=== PATIENT | female | born 1980 | race Caucasian/White ===

== ENCOUNTER 2017-03-28 18:57 | Emergency (ER) | payer MEDICARE, MEDICAID ==
[2016-03-09 17:33] VITALS: Ht 168.9 cm; Wt 61.2 kg
[~2017-03-28] VITALS: Ht 168.9 cm; Wt 61.2 kg
[~2017-03-28 18:57] MED LIST: ALPR-434 PO; BACL-1 PO; CYCL10TA29 PO; DOXY-260 PO; HYDR-4309 PO; HYDR25CA83 PO; HYDR50CA48 PO; IBUP-2708 PO; LOR5/325 PO; LORA-1456 PO; MELA3TAB31 PO; METR-160 PO; MIRT-1 PO; MULT-1379 PO; OLAN5TAB25 PO; ONDA4TAB PO; ONDA8TAB94 PO; PRED15SO5 OU; PRED1DRO2 OP; PRED20TA6 PO; SULF-198 PO; TRAM-420 PO
--- NOTE | 2017-03-28 19:01 | ER Report ---
History and Physical Time Seen By MD: 19:00 Hx. of Stated Complaint: coccyx pain HPI/ROS 37-year-old female was ice skating yesterday said she fell backwards onto her coccyx has had pain since then states she was able to have a bowel movement this morning Remainder of the 14 system rev: Yes Allergies: Coded Allergies: lamotrigine (Verified Allergy, Severe, 03/28/17) Reports having seizures. Opioids - Morphine Analogues (Verified Allergy, Intermediate, 03/28/17) albuterol sulfate (Verified Allergy, Unknown, STOPPED BREATHING, 03/28/17) oxycodone HCl (Verified Adverse Reaction, Unknown, VOMITTING, 03/28/17) Home Meds Active Scripts Ciprofloxacin Hcl (CIPROFLOXACIN HCL) 500 Mg Tablet, 500 MG PO Q12H, #14 TAB Prov:KENNETH WANG 03/28/17 Tramadol Hcl (ULTRAM) 50 Mg Tablet, 50 MG PO Q6H for 7 Days, #20 TAB Prov:KENNETH WANG 03/28/17 Docusate Sodium (COLACE) 100 Mg Capsule, 100 MG PO nightly for 30 Days, #30 CAPSULE Prov:KENNETH WANG APRN-Nicolette 03/28/17 Reported Medications Mirtazapine (REMERON) 15 Mg Tablet, 7.5 MG PO QHS, #30 1 Refill TAKE 1/2 TABLET AN HOUR BEFORE YOU PLAN TO GO TO SLEEP. 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 OCC MARIJUANA) Hx Alcohol Use: Yes Family History of: Other (psyche) Constitutional Vital Sign - Last 24 Hours 03/28/17 19:12 Temp 98.5 Pulse 87 Resp 16 B/P (MAP) 105/69 Pulse Ox 96 Physical Exam 37-year-old female alert and oriented mild distress HEENT head normocephalic/ atraumatic tympanic membranes are non-reddened throat is non-reddened neck is supple no JVD heart rate regular no murmurs or gallops lungs clear to auscultation abdomen is soft moves all extremities does have point tenderness pain to her lower coccyx Medical Decision Making Data Points Laboratory Hematology Test 03/28/17 00:00 Urine Color Sravani Urine Clarity Slightly-cloudy Urine pH 5.0 pH (4.8-9.5) Urine Specific [place] 1.026 Urine Protein Negative mg/dL (NEGATIVE) Urine Glucose (UA) Negative mg/dL (NEGATIVE) Urine Ketones 20 mg/dL (NEGATIVE) Urine Blood Negative (NEGATIVE) Urine Nitrite Negative (NEGATIVE) Urine Bilirubin Negative (NEGATIVE) Urine Urobilinogen 2.0 mg/dL (0.2-1.9) Urine Leukocyte Esterase Moderate (NEGATIVE) Urine RBC 9 /HPF (0-2/HPF) Urine WBC 144 /HPF (0-5/HPF) Urine Squamous Epithelial Cells Many /LPF (</=FEW) Urine Renal Epithelial Cells Few /LPF (NONE-FEW) Urine Bacteria Few /HPF (NONE-FEW) Urine Hyaline Casts Few /LPF (NONE-FEW) Urine Mucus Few /HPF (NONE-FEW) Urine HCG, Qualitative Negative (NEGATIVE) Chemistry Test 03/28/17 00:00 Urine Color Sravani Urine Clarity Slightly-cloudy Urine pH 5.0 pH (4.8-9.5) Urine Specific [place] 1.026 Urine Protein Negative mg/dL (NEGATIVE) Urine Glucose (UA) Negative mg/dL (NEGATIVE) Urine Ketones 20 mg/dL (NEGATIVE) Urine Blood Negative (NEGATIVE) Urine Nitrite Negative (NEGATIVE) Urine Bilirubin Negative (NEGATIVE) Urine Urobilinogen 2.0 mg/dL (0.2-1.9) Urine Leukocyte Esterase Moderate (NEGATIVE) Urine RBC 9 /HPF (0-2/HPF) Urine WBC 144 /HPF (0-5/HPF) Urine Squamous Epithelial Cells Many /LPF (</=FEW) Urine Renal Epithelial Cells Few /LPF (NONE-FEW) Urine Bacteria Few /HPF (NONE-FEW) Urine Hyaline Casts Few /LPF (NONE-FEW) Urine Mucus Few /HPF (NONE-FEW) Urine HCG, Qualitative Negative (NEGATIVE) Urinalysis Test 03/28/17 00:00 Urine Color Sravani Urine Clarity Slightly-cloudy Urine pH 5.0 pH (4.8-9.5) Urine Specific [place] 1.026 Urine Protein Negative mg/dL (NEGATIVE) Urine Glucose (UA) Negative mg/dL (NEGATIVE) Urine Ketones 20 mg/dL (NEGATIVE) Urine Blood Negative (NEGATIVE) Urine Nitrite Negative (NEGATIVE) Urine Bilirubin Negative (NEGATIVE) Urine Urobilinogen 2.0 mg/dL (0.2-1.9) Urine Leukocyte Esterase Moderate (NEGATIVE) Urine RBC 9 /HPF (0-2/HPF) Urine WBC 144 /HPF (0-5/HPF) Urine Squamous Epithelial Cells Many /LPF (</=FEW) Urine Renal Epithelial Cells Few /LPF (NONE-FEW) Urine Bacteria Few /HPF (NONE-FEW) Urine Hyaline Casts Few /LPF (NONE-FEW) Urine Mucus Few /HPF (NONE-FEW) Urine HCG, Qualitative Negative (NEGATIVE) EKG/Imaging Imaging FACILITY: [facility] - [place] PATIENT NAME: Ignacio Andrade : 1980 MR: [id number] V: [id number] EXAM DATE: ORDERING PHYSICIAN: KENNETH WANG TECHNOLOGIST: Location: [facility] [place] Patient: Ignacio Andrade : 1980 Visit/Account:[id number] Date of Sevice: 03/28/2017 Three-view sacrum and coccyx Indication: Fall Comparison: X-ray examination abdominal series May 2015 Findings: SI joints are symmetric. Hips unremarkable. Pubic rami are intact. No evidence of sacral or coccygeal fracture is noted. Lower lumbar vertebra are intact. IMPRESSION: 1. No acute osseous abnormality of the sacrum or coccyx as above. Report Dictated By: Cheng Abraham MD at 03/28/2017 8:23 PM Report E-Signed By: Cheng Abraham MD at 03/28/2017 8:25 PM WSN:[id number] ED Course/Re-evaluation ED Course has a uti will give cipro, stool softner, ultram as needed for pain ( 20 nr) Re-evaluation pain resolved after treatment Decision to Disposition Date: Mar 28, 2017 Decision to Disposition Time: 19:26 Depart Departure Latest Vital Signs Vital Signs Date Time Temp Pulse Resp B/P (MAP) Pulse Ox O2 Delivery O2 Flow Rate FiO2 03/28/17 19:12 98.5 87 16 105/69 96 Impression: Primary Impression: Fall from ice-skates Additional Impressions: UTI (urinary tract infection) Bruise Condition: Improved Disposition: HOME OR SELF-CARE New Scripts Ciprofloxacin Hcl (CIPROFLOXACIN HCL) 500 Mg Tablet 500 MG PO Q12H, #14 TAB Prov: KENNETH WANG 03/28/17 Tramadol Hcl (ULTRAM) 50 Mg Tablet 50 MG PO Q6H for 7 Days, #20 TAB Prov: KENNETH WANG 03/28/17 Docusate Sodium (COLACE) 100 Mg Capsule 100 MG PO nightly for 30 Days, #30 CAPSULE Prov: KENNETH WANG 03/28/17 Patient Instructions: Contusion in Adults (DC), Fall Prevention (ED), Urinary Tract Infection in Women (ED) Additional Instructions: see your doctor in one week to recheck urine, push fluids, Problem Qualifiers KENNETH WANG Mar 28, 2017 19:00
[2017-03-28 19:12] VITALS: BP 105/69
[2017-03-28] MEDS ORDERED: traMADol 50 MG TAB PO ONE (19:25)
[2017-03-28] MEDS ORDERED: DOCU-416 PO (19:29)
[2017-03-28] MEDS ORDERED: TRAM-627 PO (19:29)
[2017-03-28] MEDS ORDERED: CIPR-214 PO (19:52)
[2017-03-28] MEDS ORDERED: CIPROFLOXACIN 500 MG TAB PO ONE (20:05)
--- NOTE | 2017-03-28 20:28 | RADIOLOGY IMAGING REPORT ---
FACILITY: [facility] - [place] PATIENT NAME: Ignacio Andrade : 1980 MR: [id number] V: [id number] EXAM DATE: ORDERING PHYSICIAN: KENNETH WANG TECHNOLOGIST: Location: [facility] - [place] Patient: Ignacio Andrade : 1980 Visit/Account:[id number] Date of Sevice: 03/28/2017 Three-view sacrum and coccyx Indication: Fall Comparison: X-ray examination abdominal series May 2015 Findings: SI joints are symmetric. Hips unremarkable. Pubic rami are intact. No evidence of sacral or coccygeal fracture is noted. Lower lumbar vertebra are intact. IMPRESSION: 1. No acute osseous abnormality of the sacrum or coccyx as above. Report Dictated By: Cheng Abraham MD at 03/28/2017 8:23 PM Report E-Signed By: Cheng Abraham MD at 03/28/2017 8:25 PM WSN:[id number]
== END 2017-03-28 20:50 | disposition home or self-care (01) ==
LOC: ER 19:39
DX: N39.0 Urinary tract infection, site not specified (principal); W00.0XXA Fall on same level due to ice and snow, initial encounter; Y93.21 Activity, ice skating
CPT/HCPCS: 72220; 81001; 81025; 87077; 87088; 87186; 99283; A9270

== ENCOUNTER 2017-04-18 16:09 | Emergency (ER) | payer MEDICARE, MEDICAID ==
[2016-03-09 17:33] VITALS: Wt 59.0 kg
[~2017-04-18 16:09] MED LIST changes: +CIPR-214 PO; +DOCU-416 PO; +TRAM-627 PO
[2017-04-18] MEDS ORDERED: PROPARACAINE 0.5% OP 15ML BTL OS ONE (16:45)
[2017-04-18] MEDS ORDERED: FLUORESCEIN SOD 1 MG 1 EA STRP OS ONE (16:45)
[2017-04-18] MEDS ORDERED: SUMA5SPR7 NS (17:58)
--- NOTE | 2017-04-18 17:58 | ER Report ---
History and Physical Time Seen By MD: 16:47 Hx. of Stated Complaint: patient states she has a contact stuck in her eye and that there is some terrible swelling as well; patient also has a cluster head ache HPI/ROS CHIEF COMPLAINT: Headache HISTORY OF PRESENT ILLNESS: Left-sided headache associated with left eye redness and tearing headache is throbbing pain in the globe. She's had similar headaches before. No nausea or vomiting. Has had Advil at home no relief. Denies any foreign body exposure to her eye. Denies recent drilling hammering or working with metal or wood. Denies chemical or other splash to her eye. Does not feel like conjunctivitis. Denies eye discharge. Denies visual loss. She has been wearing her contact for about a week and usually changes them out once a month. Contact is in place at this time. REVIEW OF SYSTEMS: Constitutional: No fever, no chills. Eyes: No discharge. ENT: No sore throat. Cardiovascular: No chest pain, no palpitations. Respiratory: No cough, no shortness of breath. Gastrointestinal: No abdominal pain, no vomiting. Genitourinary: No hematuria. Musculoskeletal: No back pain. Skin: No rashes. Neurological: No headache. Allergies: Coded Allergies: lamotrigine (Verified Allergy, Severe, 04/18/17) Reports having seizures. Opioids - Morphine Analogues (Verified Allergy, Intermediate, 04/18/17) albuterol sulfate (Verified Allergy, Unknown, STOPPED BREATHING, 04/18/17) oxycodone HCl (Verified Adverse Reaction, Unknown, VOMITTING, 04/18/17) Home Meds Reported Medications Mirtazapine (REMERON) 15 Mg Tablet, 7.5 MG PO QHS, #30 1 Refill TAKE 1/2 TABLET AN HOUR BEFORE YOU PLAN TO GO TO SLEEP. 06/25/15 Olanzapine (ZYPREXA) 5 Mg Tablet, 5 MG PO QHS, #30 1 Refill 06/25/15 Hydroxyzine Pamoate (VISTARIL) 25 Mg Capsule, 25 MG PO Q6H Y for ANXIETY/ INSOMNIA, #60 CAPSULE 1 Refill TAKE EVERY SIX HOURS NEEDED FOR ANXIETY OR INSOMNIA 06/13/14 Discontinued Scripts Ciprofloxacin Hcl (CIPROFLOXACIN HCL) 500 Mg Tablet, 500 MG PO Q12H, #14 TAB Prov:KENNETH WANG 03/28/17 Tramadol Hcl (ULTRAM) 50 Mg Tablet, 50 MG PO Q6H for 7 Days, #20 TAB Prov:KENNETH WANG SARA 03/28/17 Docusate Sodium (COLACE) 100 Mg Capsule, 100 MG PO nightly for 30 Days, #30 CAPSULE Prov:KENNETH WANG DAMEONPorscheNicolette 03/28/17 Hx Smoking: Yes Smoking Status: Former Smoker Exposure to Second Hand Smoke?: No 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 OCC MARIJUANA) Hx Alcohol Use: Yes Constitutional Vital Sign - Last 24 Hours 04/18/17 16:47 Temp 98.2 Pulse 69 Resp 18 B/P (MAP) 109/83 Pulse Ox 96 O2 Delivery Room Air Physical Exam General Appearance: The patient is alert, has no immediate need for airway protection and no signs of toxicity. Mild to moderate distress Eyes: Pupils equal and round no pallor or injection. Fluorescein stain after proparacaine and slit lamp exam was performed. Negative Esperanza sign. Negative for stippling. Negative for dendrites. Negative for dye uptake to suggest corneal abrasion perforation or ulcer. Augusto-Pen exam was performed and pressures were 19 and 22 in the affected left eye. The right eye was not tested. ENT, Mouth: Mucous membranes are moist. Respiratory: There are no retractions, lungs are clear to auscultation. Cardiovascular: Regular rate and rhythm. No murmurs gallops or rubs Gastrointestinal: Abdomen is soft and non tender, no masses, bowel sounds normal. Neurological: Normal neurological exam Skin: Warm and dry, no rashes. Musculoskeletal: Neck is supple non tender. Extremities are nontender, nonswollen and have full range of motion. No edema DIFFERENTIAL DIAGNOSIS: After history and physical exam differential diagnosis was considered for migraine headache, cluster headache, eye foreign body, corneal abrasion or other entity, glaucoma Medical Decision Making ED Course/Re-evaluation ED Course Headache improved in the ED after high flow oxygen by nonrebreather at 15 L/m. Slit-lamp exam was negative Augusto-Pen exam was negative patient plans Opto follow -up tomorrow morning has Advil at home for the pain will provide triptan should the headache recur. Decision to Disposition Date: Apr 18, 2017 Decision to Disposition Time: 17:55 Depart Departure Latest Vital Signs Vital Signs Date Time Temp Pulse Resp B/P (MAP) Pulse Ox O2 Delivery O2 Flow Rate FiO2 04/18/17 16:47 98.2 69 18 109/83 96 Room Air Impression: Primary Impression: Cluster headache Condition: Improved Disposition: HOME OR SELF-CARE New Scripts Sumatriptan (SUMATRIPTAN) 5 Mg [place] 5 MG NS ONCE Y for headache for 7 Days, #1 BOT Prov: BEV FULLER MD 04/18/17 Patient Instructions: Cluster Headache (ED) Problem Qualifiers Primary Impression: Cluster headache Headache chronicity pattern: unspecified pattern Intractability: not intractable Qualified Codes: G44.009 - Cluster headache syndrome, unspecified , not intractable BEV FULLER MD Apr 18, 2017 17:58
[2017-04-18 18:00] VITALS: BP 102/79
[2017-04-19] MEDS ORDERED: VALA500T66 PO (17:19)
[2017-04-19] MEDS ORDERED: LOR5/325 PO (19:33)
[2017-04-19] MEDS ORDERED: ONDA4TAB PO (19:33)
[2017-04-19] MEDS ORDERED: KET10 PO (19:33)
== END 2017-04-18 18:05 | disposition home or self-care (01) ==
LOC: ER 16:41
DX: G44.009 Cluster headache syndrome, unspecified, not intractable (principal)
CPT/HCPCS: 99283; A9270

== ENCOUNTER 2017-04-19 16:57 | Emergency (ER) | payer MEDICARE, MEDICAID ==
[2016-03-09 17:33] VITALS: Wt 61.2 kg
[~2017-04-19 16:57] MED LIST changes: +SUMA5SPR7 NS
[2017-04-19] MEDS ORDERED: VALA500T66 PO (17:19)
--- NOTE | 2017-04-19 17:30 | ER Report ---
History and Physical Time Seen By MD: 17:29 Hx. of Stated Complaint: PATIENT WENT TO EYE DR. TODAY AND TOLD HER SHE HAD SHINGLES; THE SHINGLES ARE IN HER NOSE AND ON HER RIGHT SIDE OF HER FACE; PATIENT HAS N/V AND STATES SHE HAS 10/10 PAIN HPI/ROS CHIEF COMPLAINT: headache and pain in face HISTORY OF PRESENT ILLNESS: This is a 37 year old female. She is having pain, headache and face pain, from shingles. Went to the eye doctor today and was diagnosed with shingles, started on acyclovir and steroids. Having severe headache and face/nose pain. Has follow-up with network operations specialist for eye involvement. Having nausea and vomiting as well. Allergies: Coded Allergies: lamotrigine (Verified Allergy, Severe, 04/19/17) Reports having seizures. Opioids - Morphine Analogues (Verified Allergy, Intermediate, 04/19/17) albuterol sulfate (Verified Allergy, Unknown, STOPPED BREATHING, 04/19/17) oxycodone HCl (Verified Adverse Reaction, Unknown, VOMITTING, 04/19/17) Home Meds Active Scripts Ondansetron (ZOFRAN ODT) 4 Mg Tab.rapdis, 4 MG PO Q6H Y for NAUSEA/VOMITING, # 20 TAB.SHADY 0 Refills Prov:PADMINI YEAGER MD 04/19/17 Ketorolac Tromethamine (KETOROLAC TROMETHAMINE) 10 Mg Tab, 10 MG PO Q6H Y for PAIN, #12 TAB 0 Refills Prov:PADMINI YEAGER MD 04/19/17 Hydrocodone Bit/Acetaminophen (HYDROCODON-ACETAMINOPHEN 5-325) 1 Each Tablet, 1 EACH PO Q4H Y for PAIN, #15 TAB 0 Refills Prov:PADMINI YEAGER MD 04/19/17 Sumatriptan (SUMATRIPTAN) 5 Mg [place], 5 MG NS ONCE Y for headache for 7 Days, # 1 BOT Prov:BEV FULLER MD 04/18/17 Reported Medications Valacyclovir Hcl (VALTREX) 500 Mg Tablet, 500 MG PO 04/19/17 Mirtazapine (REMERON) 15 Mg Tablet, 7.5 MG PO QHS, #30 1 Refill TAKE 1/2 TABLET AN HOUR BEFORE YOU PLAN TO GO TO SLEEP. 06/25/15 Olanzapine (ZYPREXA) 5 Mg Tablet, 5 MG PO QHS, #30 1 Refill 06/25/15 Hydroxyzine Pamoate (VISTARIL) 25 Mg Capsule, 25 MG PO Q6H Y for ANXIETY/ INSOMNIA, #60 CAPSULE 1 Refill TAKE EVERY SIX HOURS NEEDED FOR ANXIETY OR INSOMNIA 06/13/14 Discontinued Scripts Ciprofloxacin Hcl (CIPROFLOXACIN HCL) 500 Mg Tablet, 500 MG PO Q12H, #14 TAB Prov:KENNETH WANG 03/28/17 Tramadol Hcl (ULTRAM) 50 Mg Tablet, 50 MG PO Q6H for 7 Days, #20 TAB Prov:KENNETH WANG 03/28/17 Docusate Sodium (COLACE) 100 Mg Capsule, 100 MG PO nightly for 30 Days, #30 CAPSULE Prov:KENNETH WANG 03/28/17 Reviewed Nurses Notes: Yes Hx Smoking: Yes Smoking Status: Former Smoker Exposure to Second Hand Smoke?: No 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 Eyes: Pupils equal and round, some injection. Photophobia. ENT: Moist mucous membranes. Inflammation of right nasal passage and vesicular rash on cheek. Respiratory: Breathing easily. Cardiac: regular rate and rhythm Skin: shingles rash as noted. DIFFERENTIAL DIAGNOSIS: After history and physical exam differential diagnosis was considered for shingles pain Medical Decision Making ED Course/Re-evaluation Clinical Indication for ER IV: Hydration, IV Access ED Course Toradol 30mg IV given with good results for pain. Also given Lortab 5/325. 2 liters of normal saline given. Zofran 4mg IV for pain, with initial good results , then given Phenergan 12.5mg IV for nausea later. Decision to Disposition Date: Apr 19, 2017 Decision to Disposition Time: 19:31 Depart Departure Latest Vital Signs Vital Signs Date Time Temp Pulse Resp B/P (MAP) Pulse Ox O2 Delivery O2 Flow Rate FiO2 04/19/17 18:27 76 95 04/19/17 17:59 100/55 (70) 04/19/17 17:08 97.0 19 Room Air Impression: Primary Impression: Shingles Additional Impressions: Face pain Headache Condition: Improved Disposition: HOME OR SELF-CARE New Scripts Ondansetron (ZOFRAN ODT) 4 Mg Tab.rapdis 4 MG PO Q6H Y for NAUSEA/VOMITING, #20 TAB.SHADY 0 Refills Prov: PADMINI YEAGER MD 04/19/17 Ketorolac Tromethamine (KETOROLAC TROMETHAMINE) 10 Mg Tab 10 MG PO Q6H Y for PAIN, #12 TAB 0 Refills Prov: PADMINI YEAGER MD 04/19/17 Hydrocodone Bit/Acetaminophen (HYDROCODON-ACETAMINOPHEN 5-325) 1 Each Tablet 1 EACH PO Q4H Y for PAIN, #15 TAB 0 Refills Prov: PADMINI YEAGER MD 04/19/17 Patient Instructions: Shingles (ED) Additional Instructions: Follow-up with the network operations specialist as planned. Keep taking the steroid and the antiviral as your eye doctor prescribed. Take Toradol 10mg one every 6 hours as needed for pain. Lortab 5/325, one every 4 hours as needed for pain. Zofran 4mg, one every 6 hours as needed for pain. Problem Qualifiers Primary Impression: Shingles Herpes zoster complications: with ocular involvement Herpes zoster ocular complication detail: other herpes zoster eye disease Qualified Codes: B02.39 - Other herpes zoster eye disease Additional Impressions: Headache Headache type: unspecified Headache chronicity pattern: acute headache Intractability: not intractable Qualified Codes: R51 - Headache PADMINI YEAGER MD Apr 19, 2017 17:29
[2017-04-19] MEDS ORDERED: NS(*) 0.9% 1000 ML BAG 1,000 ML IV ONE ×2 (17:40→18:50)
[2017-04-19] MEDS ORDERED: ONDANSETRON 4 MG/2 ML VIAL IVP ONE ×2 (17:40→20:00)
[2017-04-19] MEDS ORDERED: APAP/HYDROCODONE 325/5 TAB PO ONE (17:40)
[2017-04-19] MEDS ORDERED: KETOROLAC 30 MG/ML VIAL IVP ONE (17:40)
[2017-04-19] MEDS ORDERED: KET10 PO (19:33)
[2017-04-19] MEDS ORDERED: ONDA4TAB PO (19:33)
[2017-04-19] MEDS ORDERED: LOR5/325 PO (19:33)
[2017-04-19] MEDS ORDERED: ACET/HYDROC 5/325MG TH ER ONLY 2 TAB/BOTTLE PO ONE (19:40)
[2017-04-19] MEDS ORDERED: ONDANSETRON 4 MG ODT TH SL ONE (19:40)
[2017-04-19] MEDS ORDERED: KETOROLAC TROM 10 MG TAB TH PO ONE (19:40)
[2017-04-19 20:00] VITALS: BP 119/75
[2017-04-19] MEDS ORDERED: PROMETHAZINE 25 MG/ML 1 ML AMP IVP ONE (20:20)
== END 2017-04-19 20:32 | disposition home or self-care (01) ==
LOC: ER 17:13
DX: B02.39 Other herpes zoster eye disease (principal); R51 Headache
CPT/HCPCS: 96361; 96374; 96375; 96376; 99284; A9270; J1885; J2405; J2550; J7030; Q0162; S0119

== ENCOUNTER 2017-04-24 10:07 | Emergency (ER) | payer MEDICARE, MEDICAID ==
[2016-03-09 17:33] VITALS: Wt 61.2 kg
[~2017-04-24 10:07] MED LIST changes: +KET10 PO; +VALA500T66 PO
--- NOTE | 2017-04-24 10:15 | ER Report ---
History and Physical Time Seen By MD: 10:22 HPI/ROS CHIEF COMPLAINT: Persistent pain from shingles HISTORY OF PRESENT ILLNESS: Patient is a 37-year-old female who presents to emergency department with complaint of facial pain and headache from shingles. She had been seen by an eye doctor on April 19 and diagnosed with shingles and started on acyclovir along with steroids. She is having headaches face and nose pain. She was seen later on the emergency department at which time she received 30 mg of IV Toradol as well as hydrocodone improved her symptoms. Patient returns to the emergency department today for persistent pain and symptoms. He does have ophthalmologic follow-up next week. She is taking all her medications as directed. REVIEW OF SYSTEMS: Constitutional: No fever, no chills. Eyes: Clear discharge and iritis ENT: No sore throat. Cardiovascular: No chest pain, no palpitations. Respiratory: No cough, no shortness of breath. Gastrointestinal: No abdominal pain, no vomiting. Genitourinary: No hematuria. Musculoskeletal: No back pain. Skin: Zoster to the face Allergies: Coded Allergies: lamotrigine (Verified Allergy, Severe, 04/19/17) Reports having seizures. Opioids - Morphine Analogues (Verified Allergy, Intermediate, 04/19/17) albuterol sulfate (Verified Allergy, Unknown, STOPPED BREATHING, 04/19/17) oxycodone HCl (Verified Adverse Reaction, Unknown, VOMITTING, 04/19/17) Home Meds Active Scripts Hydrocodone Bit/Acetaminophen (HYDROCODON-ACETAMINOPHEN 5-325) 1 Each Tablet, 1- 2 EACH PO Q4-6H Y for PAIN, #25 TAB 0 Refills TAKE ONE TABLET BY MOUTH EVERY 4-6 HOURS NEEDED FOR PAIN Prov:MIYA JOHNSON MD 04/24/17 Ondansetron (ZOFRAN ODT) 4 Mg Tab.rapdis, 4 MG PO Q6H Y for NAUSEA/VOMITING, # 20 TAB.SHADY 0 Refills Prov:PADMINI YEAGER MD 04/19/17 Ketorolac Tromethamine (KETOROLAC TROMETHAMINE) 10 Mg Tab, 10 MG PO Q6H Y for PAIN, #12 TAB 0 Refills Prov:PADMINI YEAGER MD 04/19/17 Sumatriptan (SUMATRIPTAN) 5 Mg [place], 5 MG NS ONCE Y for headache for 7 Days, # 1 BOT Prov:BEV FULLER MD 04/18/17 Reported Medications Valacyclovir Hcl (VALTREX) 500 Mg Tablet, 500 MG PO 04/19/17 Mirtazapine (REMERON) 15 Mg Tablet, 7.5 MG PO QHS, #30 1 Refill TAKE 1/2 TABLET AN HOUR BEFORE YOU PLAN TO GO TO SLEEP. 06/25/15 Olanzapine (ZYPREXA) 5 Mg Tablet, 5 MG PO QHS, #30 1 Refill 06/25/15 Hydroxyzine Pamoate (VISTARIL) 25 Mg Capsule, 25 MG PO Q6H Y for ANXIETY/ INSOMNIA, #60 CAPSULE 1 Refill TAKE EVERY SIX HOURS NEEDED FOR ANXIETY OR INSOMNIA 06/13/14 Discontinued Scripts Hydrocodone Bit/Acetaminophen (HYDROCODON-ACETAMINOPHEN 5-325) 1 Each Tablet, 1 EACH PO Q4H Y for PAIN, #15 TAB 0 Refills Prov:PADMINI YEAGER MD 04/19/17 Ciprofloxacin Hcl (CIPROFLOXACIN HCL) 500 Mg Tablet, 500 MG PO Q12H, #14 TAB Prov:KENNETH WANG 03/28/17 Tramadol Hcl (ULTRAM) 50 Mg Tablet, 50 MG PO Q6H for 7 Days, #20 TAB Prov:KENNETH WANG 03/28/17 Docusate Sodium (COLACE) 100 Mg Capsule, 100 MG PO nightly for 30 Days, #30 CAPSULE Prov:KENNETH WANG 03/28/17 Past Medical/Surgical History Noncontributory to the chief complaint Hx Smoking: Yes Smoking Status: Former Smoker Exposure to Second Hand Smoke?: No 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 93 Resp 16 B/P (MAP) 133/79 133/79 (97) 118/78 (91) Pulse Ox 96 O2 Delivery Room Air 04/24/17 04/24/17 04/24/17 04/24/17 10:22 10:30 10:52 10:59 Pulse 91 75 B/P (MAP) ???/??? (0065) 121/74 (90) Pulse Ox 94 89 04/24/17 04/24/17 04/24/17 04/24/17 11:07 11:12 11:27 11:30 Pulse 72 69 70 B/P (MAP) 120/70 (87) Pulse Ox 90 93 99 Intake and Output 04/24/17 04/24/17 04/25/17 15:00 23:00 07:00 Intake Total 900 ml Balance 900 ml Physical Exam General Appearance: The patient is alert, has no immediate need for airway protection and no current signs of toxicity. Appears uncomfortable secondary to pain Eyes: Left sided injection to the eye, clear discharge Respiratory: Chest is non tender, lungs are clear to auscultation. Cardiac: regular rate and rhythm [ ] Gastrointestinal: Abdomen is soft and non tender, no masses, bowel sounds normal. Musculoskeletal: Neck: Neck is supple and non tender. Extremities have full range of motion and are non tender. Skin: Ayon's sign on nose right-sided zoster affecting the trigeminal nerve branch. Medical Decision Making ED Course/Re-evaluation ED Course 04/24/2017 10:42:25 am this time will be to provide pain relief with IV Toradol and oral Lortab. We'll also give half milligram of Ativan to help with patient's anxiety. We'll consider adding Viroptic drops to the right eye we'll have patient continue her Valtrex and follow-up with ophthalmology as scheduled Re-evaluation 04/24/2017 11:07:16 am symptoms improved with IV Toradol and Lortab. We will add Viroptic eyedrops to the left eye one drop every 2 hours while awake for the next 7 days Decision to Disposition Date: Apr 24, 2017 Decision to Disposition Time: 11:07 Depart Departure Latest Vital Signs Vital Signs Date Time Temp Pulse Resp B/P (MAP) Pulse Ox O2 Delivery O2 Flow Rate FiO2 04/24/17 11:30 120/70 (87) 04/24/17 11:27 70 99 04/24/17 10:12 98.1 16 Room Air Impression: Primary Impression: Shingles Condition: Improved Disposition: HOME OR SELF-CARE New Scripts Hydrocodone Bit/Acetaminophen (HYDROCODON-ACETAMINOPHEN 5-325) 1 Each Tablet 1-2 EACH PO Q4-6H Y for PAIN, #25 TAB 0 Refills TAKE ONE TABLET BY MOUTH EVERY 4-6 HOURS NEEDED FOR PAIN Prov: MIYA JOHNSON MD 04/24/17 Patient Instructions: Shingles (DC) Additional Instructions: Viroptic eyedrops: 1 drop to affected eye every 2 hours while awake for the next 7 days Follow-up as scheduled with her environmental designer Continue all your outpatient medications as prescribed Problem Qualifiers Primary Impression: Shingles Herpes zoster complications: with other complications Qualified Codes: B02.8 - Zoster with other complications MIYA JOHNSON MD Apr 24, 2017 10:15
[2017-04-24] MEDS ORDERED: LORazepam 2 MG/ML VIAL IVP ONE (10:25)
[2017-04-24] MEDS ORDERED: APAP/HYDROCODONE 325/5 TAB PO ONE (10:25)
[2017-04-24] MEDS ORDERED: KETOROLAC 30 MG/ML VIAL IVP ONE (10:25)
[2017-04-24] MEDS ORDERED: NS(*) 0.9% 1000 ML BAG 1,000 ML IV ONE (10:25)
[2017-04-24] MEDS ORDERED: TRIFLURIDINE 1% OU ONE (10:30)
[2017-04-24] MEDS ORDERED: LOR5/325 PO (11:06)
[2017-04-24 11:30] VITALS: BP 120/70
== END 2017-04-24 11:51 | disposition home or self-care (01) ==
LOC: ER 10:26
DX: B02.8 Zoster with other complications (principal)
CPT/HCPCS: 96361; 96374; 96375; 99284; A9270; J1885; J2060; J7030

== ENCOUNTER 2017-04-26 07:43 | Emergency (ER) | payer MEDICARE, MEDICAID ==
[2016-03-09 17:33] VITALS: Wt 61.2 kg
[2017-04-26] MEDS ORDERED: ONDANSETRON 4 MG ODT TH SL ONE (08:00)
--- NOTE | 2017-04-26 08:24 | ER Report ---
History and Physical Time Seen By MD: 08:24 Hx. of Stated Complaint: pt comes in screaming at her mother who is arguing back. Mother is asked to wait in waiting room. pt has been seen here multiple times this week for shingles, now they are in her sinuses. was vomiting last night, cant keep her meds down States many of her meds are at her exboyfriend's house and she is unable to get them HPI/ROS Has been battling with shingles on her face/nose and possibly eye for the past 2 weeks. Has appointment with optho this morning at 0915. Came to the ED, b/c she feels nauseous from her anti-viral meds, and her boyfriend has her Zofran. No active vomiting in the ED. No abdominal pain. No changes in vision. Remainder of the 14 system rev: Yes Allergies: Coded Allergies: lamotrigine (Verified Allergy, Severe, 04/26/17) Reports having seizures. Opioids - Morphine Analogues (Verified Allergy, Intermediate, 04/26/17) albuterol sulfate (Verified Allergy, Unknown, STOPPED BREATHING, 04/26/17) oxycodone HCl (Verified Adverse Reaction, Unknown, VOMITTING, 04/26/17) Home Meds Active Scripts Hydrocodone Bit/Acetaminophen (HYDROCODON-ACETAMINOPHEN 5-325) 1 Each Tablet, 1- 2 EACH PO Q4-6H Y for PAIN, #25 TAB 0 Refills TAKE ONE TABLET BY MOUTH EVERY 4-6 HOURS NEEDED FOR PAIN Prov:MIYA JOHNSON MD 04/24/17 Ondansetron (ZOFRAN ODT) 4 Mg Tab.rapdis, 4 MG PO Q6H Y for NAUSEA/VOMITING, # 20 TAB.SHADY 0 Refills Prov:PADMINI YEAGER MD 04/19/17 Ketorolac Tromethamine (KETOROLAC TROMETHAMINE) 10 Mg Tab, 10 MG PO Q6H Y for PAIN, #12 TAB 0 Refills Prov:PADMINI YEAGER MD 04/19/17 Sumatriptan (SUMATRIPTAN) 5 Mg [place], 5 MG NS ONCE Y for headache for 7 Days, # 1 BOT Prov:BEV FULLER MD 04/18/17 Reported Medications Valacyclovir Hcl (VALTREX) 500 Mg Tablet, 500 MG PO 04/19/17 Mirtazapine (REMERON) 15 Mg Tablet, 7.5 MG PO QHS, #30 1 Refill TAKE 1/2 TABLET AN HOUR BEFORE YOU PLAN TO GO TO SLEEP. 06/25/15 Olanzapine (ZYPREXA) 5 Mg Tablet, 5 MG PO QHS, #30 1 Refill 06/25/15 Hydroxyzine Pamoate (VISTARIL) 25 Mg Capsule, 25 MG PO Q6H Y for ANXIETY/ INSOMNIA, #60 CAPSULE 1 Refill TAKE EVERY SIX HOURS NEEDED FOR ANXIETY OR INSOMNIA 06/13/14 Discontinued Scripts Hydrocodone Bit/Acetaminophen (HYDROCODON-ACETAMINOPHEN 5-325) 1 Each Tablet, 1 EACH PO Q4H Y for PAIN, #15 TAB 0 Refills Prov:PADMINI YEAGER MD 04/19/17 Reviewed Nurses Notes: Yes Old Medical Records Reviewed: Yes Hx Smoking: Yes Smoking Status: Former Smoker Exposure to Second Hand Smoke?: No 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 OCC MARIJUANA) Hx Alcohol Use: Yes Constitutional Vital Sign - Last 24 Hours 04/26/17 07:46 Temp 98.8 Pulse 69 Resp 22 B/P (MAP) 134/75 Pulse Ox 93 O2 Delivery Room Air Physical Exam General Appearance: The patient is alert, has no immediate need for airway protection and no current signs of toxicity. HEENT: Pupils equal and round no injection. Shingles to her nose more on the right side. scattered shingles to the right side of face Respiratory: Chest is non tender, lungs are clear to auscultation. Cardiac: regular rate and rhythm Gastrointestinal: Abdomen is soft and non tender, no masses, bowel sounds normal. Skin: See above HEENT DIFFERENTIAL DIAGNOSIS: After history and physical exam differential diagnosis was considered for worsening shingles, abdominal infection, dehydration, uti Medical Decision Making ED Course/Re-evaluation ED Course This is a 37-year-old female who has been battling shingles on her face for the past week. She was placed on antiviral drugs as well as some Zofran because the antivirals make her nauseous. She came to the emergency department because she broke up with her boyfriend and her meds including her Zofran is in the possession of her boyfriend. She feels nauseous but has not had any episodes of vomiting. No abdominal pain and no urinary symptoms. She continues to have a shingles rash on her face including her nose. She has an appointment with ophthalmology this morning for a complete eye exam to make sure that she does not have herpes ophthalmicus. She denies any acute vision changes. She was given Zofran ODT and was able to tolerate by mouth after the Zofran. She will be discharged and sent immediately to her appointment up so, and she can grape picker medications better with her boyfriend later today. Decision to Disposition Date: Apr 26, 2017 Decision to Disposition Time: 08:36 Depart Departure Latest Vital Signs Vital Signs Date Time Temp Pulse Resp B/P (MAP) Pulse Ox O2 Delivery O2 Flow Rate FiO2 04/26/17 07:46 98.8 69 22 134/75 93 Room Air Impression: Primary Impression: Nausea & vomiting Condition: Improved Disposition: HOME OR SELF-CARE Patient Instructions: Acute Nausea and Vomiting (ED) Additional Instructions: GO DIRECTLY TO YOUR OPTHO APPOINTMENT THIS MORNING Problem Qualifiers Primary Impression: Nausea & vomiting Vomiting type: unspecified Vomiting Intractability: non-intractable Qualified Codes: R11.2 - Nausea with vomiting, unspecified JEFF CHOI MD Apr 26, 2017 08:24
[2017-04-26 08:30] VITALS: BP 120/80
== END 2017-04-26 08:43 | disposition home or self-care (01) ==
LOC: ER 07:52
DX: R11.2 Nausea with vomiting, unspecified (principal)
CPT/HCPCS: 99282; Q0162; S0119

== ENCOUNTER 2017-05-09 18:19 | Emergency (ER) | payer MEDICARE, MEDICAID ==
[2016-03-09 17:33] VITALS: Wt 61.2 kg
--- NOTE | 2017-05-09 18:26 | ER Report ---
History and Physical Time Seen By MD: 18:26 HPI/ROS CHIEF COMPLAINT: BHS HISTORY OF PRESENT ILLNESS: Patient is a 37-year-old female with history of boarderline personality disorder fevers here feeling completely anxious and stressed out. She's been off her psychiatric medications. She's been dealing with recurrent bouts of shingles which she been treated with antivirals as well as narcotic pain medications, as has reactivated some for cravings for narcotics. She states she's been in recovery since 2010. Patient denies any specific suicidal or homicidal ideation but states that she is not sleeping and not eating having racing thoughts and does not feel safe at home. For this reason she presents to the emergency department as she is requesting voluntary admission as well as restarting her psychiatric medications. REVIEW OF SYSTEMS: Constitutional: No fever, no chills. Eyes: No discharge. ENT: No sore throat. Cardiovascular: No chest pain, no palpitations. Respiratory: No cough, no shortness of breath. Gastrointestinal: No abdominal pain, no vomiting. Genitourinary: No hematuria. Musculoskeletal: No back pain. Skin: No rashes. Neurological: No headache. Psychiatric: Anxiety, racing thoughts denies suicidal or homicidal ideation Allergies: Coded Allergies: lamotrigine (Verified Allergy, Severe, 04/26/17) Reports having seizures. Opioids - Morphine Analogues (Verified Allergy, Intermediate, 04/26/17) albuterol sulfate (Verified Allergy, Unknown, STOPPED BREATHING, 04/26/17) oxycodone HCl (Verified Adverse Reaction, Unknown, VOMITTING, 04/26/17) Home Meds Active Scripts Sumatriptan (SUMATRIPTAN) 5 Mg [place], 5 MG NS ONCE Y for headache for 7 Days, # 1 BOT Prov:BEV FULLER MD 04/18/17 Reported Medications Valacyclovir Hcl (VALTREX) 500 Mg Tablet, 500 MG PO 04/19/17 Hydroxyzine Pamoate (VISTARIL) 25 Mg Capsule, 25 MG PO Q6H Y for ANXIETY/ INSOMNIA, #60 CAPSULE 1 Refill TAKE EVERY SIX HOURS NEEDED FOR ANXIETY OR INSOMNIA 06/13/14 Discontinued Reported Medications Mirtazapine (REMERON) 15 Mg Tablet, 7.5 MG PO QHS, #30 1 Refill TAKE 1/2 TABLET AN HOUR BEFORE YOU PLAN TO GO TO SLEEP. 06/25/15 Olanzapine (ZYPREXA) 5 Mg Tablet, 5 MG PO QHS, #30 1 Refill 06/25/15 Discontinued Scripts Hydrocodone Bit/Acetaminophen (HYDROCODON-ACETAMINOPHEN 5-325) 1 Each Tablet, 1- 2 EACH PO Q4-6H Y for PAIN, #25 TAB 0 Refills TAKE ONE TABLET BY MOUTH EVERY 4-6 HOURS NEEDED FOR PAIN Prov:MIYA JOHNSON MD 04/24/17 Ondansetron (ZOFRAN ODT) 4 Mg Tab.rapdis, 4 MG PO Q6H Y for NAUSEA/VOMITING, # 20 TAB.SHADY 0 Refills Prov:PADMINI YEAGER MD 04/19/17 Ketorolac Tromethamine (KETOROLAC TROMETHAMINE) 10 Mg Tab, 10 MG PO Q6H Y for PAIN, #12 TAB 0 Refills Prov:PADMNII YEAGER MD 04/19/17 Past Medical/Surgical History Past medical history for "seizures" that seem to occur when she is stressed or experiencing PTSD. She states history of "strokes" has had evaluations by CT and MRI but these have all been reported within normal limits. Prior history of alcohol, methamphetamine opiate benzodiazepine abuse. History of prior psychiatric inpatient admission secondary to racing thoughts and suicidal ideation. Hx Smoking: Yes Smoking Status: Former Smoker Exposure to Second Hand Smoke?: No 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 OCC MARIJUANA) Hx Alcohol Use: Yes Constitutional Vital Sign - Last 24 Hours 05/09/17 18:28 Temp 98.0 Pulse 83 Resp 14 B/P (MAP) 118/75 Pulse Ox 94 O2 Delivery Room Air Physical Exam General/Constitutional: Patient is awake, alert, nontoxic and in no acute respiratory distress. Head: Normocephalic and atraumatic. Eyes: Conjunctival clear, Pupils are equal and reactive to light. Extraocular muscles are intact and symmetrical. Sclera are clear and anicteric. Ears:External canals are clear. Tympanic membranes are clear with normal landmarks and light reflex. Nares: No rhinorrhea or bleeding. Turbinates are pink and moist. Oropharyngeal: Mucous membranes are moist. There is no pharyngeal erythema or exudate. There are no palatal petechiae. Uvula is midline and symmetrical. Neck: Supple, no adenopathy. Cardiovascular: Heart is regular rate and rhythm without audible murmurs, rubs or gallops. Pulmonary: Lungs are clear to auscultation bilaterally. There are no wheezes, rales, or rhonchi. Chest rise is symmetrical Abdomen: Soft, nontender, no guarding or peritoneal signs. Extremities: No gross deformities, No peripheral cyanosis. Able to move all 4 extremities. Neuro: Alert and oriented X3, Cranial nerves 2 thru 12 are intact and symmetrical. Patient has normal gait. Skin: Shingles, all scabbed over and healing. Psych: Tearful, labile, cooperative. Thought process logical and goal-directed. Denies suicidal or homicidal ideation. Does not seem to be responding to any internal stimuli. Medical Decision Making Data Points Result Diagram: 05/09/17189905/09/171899 Laboratory Hematology Test 05/09/17 00:00 05/09/17 19:00 Urine Color Yellow Urine Clarity Clear Urine pH 5.0 pH (4.8-9.5) Urine Specific [place] 1.015 Urine Protein Negative mg/dL (NEGATIVE) Urine Glucose (UA) Negative mg/dL (NEGATIVE) Urine Ketones Trace mg/dL (NEGATIVE) Urine Blood Negative (NEGATIVE) Urine Nitrite Negative (NEGATIVE) Urine Bilirubin Negative (NEGATIVE) Urine Urobilinogen Negative mg/dL (0.2-1.9) Urine Leukocyte Esterase Negative (NEGATIVE) Urine RBC <1 /HPF (0-2/HPF) Urine WBC 1 /HPF (0-5/HPF) Urine Squamous Epithelial Cells Many /LPF (</=FEW) Urine Bacteria Few /HPF (NONE-FEW) Urine Mucus Few /HPF (NONE-FEW) Urine Opiates Screen Negative Urine Barbiturates Screen Negative Ur Tricyclic Antidepressants Screen Negative Urine Phencyclidine Screen Negative Urine Amphetamines Screen Negative Urine Benzodiazepines Screen Negative Urine Cocaine Screen Negative Urine Cannabinoids Screen Positive Red Blood Count 4.73 M/uL (4.17-5.56) Mean Corpuscular Volume 90.2 fL (80.0-96.0) Mean Corpuscular Hemoglobin 32.0 pg (26.0-33.0) Mean Corpuscular Hemoglobin Concent 35.5 g/dL (32.0-36.0) Red Cell Distribution Width 13.2 % (11.5-14.5) Mean Platelet Volume 8.2 fL (7.2-11.1) Neutrophils (%) (Auto) 54.4 % (39.4-72.5) Lymphocytes (%) (Auto) 36.5 % (17.6-49.6) Monocytes (%) (Auto) 7.4 % (4.1-12.4) Eosinophils (%) (Auto) 0.9 % (0.4-6.7) Basophils (%) (Auto) 0.8 % (0.3-1.4) Nucleated RBC Relative Count (auto) 0.0 /100WBC Neutrophils # (Auto) 5.8 K/uL (2.0-7.4) Lymphocytes # (Auto) 3.9 K/uL (1.3-3.6) Monocytes # (Auto) 0.8 K/uL (0.3-1.0) Eosinophils # (Auto) 0.1 K/uL (0.0-0.5) Basophils # (Auto) 0.1 K/uL (0.0-0.1) Nucleated RBC Absolute Count (auto) 0.00 K/uL Sodium Level 141 mmol/L (137-145) Potassium Level 3.4 mmol/L (3.5-5.0) Chloride Level 101 mmol/L (98-107) Carbon Dioxide Level 25 mmol/L (22-31) Blood Urea Nitrogen 4 mg/dl (7-18) Creatinine 0.70 mg/dl (0.52-1.04) Glomerular Filtration Rate Calc > 60.0 Random Glucose 92 mg/dl (75-110) Calcium Level 9.3 mg/dl (8.4-10.2) Magnesium Level 1.7 mg/dl (1.7-2.2) Total Bilirubin 0.6 mg/dl (0.2-1.3) Aspartate Amino Transf (AST/SGOT) 21 U/L (0-35) Alanine Aminotransferase (ALT/SGPT) 18 U/L (0-56) Alkaline Phosphatase 68 U/L (0-126) Total Protein 7.4 gm/dl (6.3-8.2) Albumin 4.0 g/dl (3.5-5.0) Salicylates Level < 10 mg/L Salicylate Last Dose Date unk Acetaminophen Level < 10 ug/ml Serum Alcohol < 10 mg/dl Chemistry Test 05/09/17 00:00 05/09/17 19:00 Urine Color Yellow Urine Clarity Clear Urine pH 5.0 pH (4.8-9.5) Urine Specific [place] 1.015 Urine Protein Negative mg/dL (NEGATIVE) Urine Glucose (UA) Negative mg/dL (NEGATIVE) Urine Ketones Trace mg/dL (NEGATIVE) Urine Blood Negative (NEGATIVE) Urine Nitrite Negative (NEGATIVE) Urine Bilirubin Negative (NEGATIVE) Urine Urobilinogen Negative mg/dL (0.2-1.9) Urine Leukocyte Esterase Negative (NEGATIVE) Urine RBC <1 /HPF (0-2/HPF) Urine WBC 1 /HPF (0-5/HPF) Urine Squamous Epithelial Cells Many /LPF (</=FEW) Urine Bacteria Few /HPF (NONE-FEW) Urine Mucus Few /HPF (NONE-FEW) Urine Opiates Screen Negative Urine Barbiturates Screen Negative Ur Tricyclic Antidepressants Screen Negative Urine Phencyclidine Screen Negative Urine Amphetamines Screen Negative Urine Benzodiazepines Screen Negative Urine Cocaine Screen Negative Urine Cannabinoids Screen Positive White Blood Count 10.6 k/uL (4.5-11.0) Red Blood Count 4.73 M/uL (4.17-5.56) Hemoglobin 15.1 g/dL (12.0-16.0) Hematocrit 42.7 % (34.0-47.0) Mean Corpuscular Volume 90.2 fL (80.0-96.0) Mean Corpuscular Hemoglobin 32.0 pg (26.0-33.0) Mean Corpuscular Hemoglobin Concent 35.5 g/dL (32.0-36.0) Red Cell Distribution Width 13.2 % (11.5-14.5) Platelet Count 258 K/uL (150-450) Mean Platelet Volume 8.2 fL (7.2-11.1) Neutrophils (%) (Auto) 54.4 % (39.4-72.5) Lymphocytes (%) (Auto) 36.5 % (17.6-49.6) Monocytes (%) (Auto) 7.4 % (4.1-12.4) Eosinophils (%) (Auto) 0.9 % (0.4-6.7) Basophils (%) (Auto) 0.8 % (0.3-1.4) Nucleated RBC Relative Count (auto) 0.0 /100WBC Neutrophils # (Auto) 5.8 K/uL (2.0-7.4) Lymphocytes # (Auto) 3.9 K/uL (1.3-3.6) Monocytes # (Auto) 0.8 K/uL (0.3-1.0) Eosinophils # (Auto) 0.1 K/uL (0.0-0.5) Basophils # (Auto) 0.1 K/uL (0.0-0.1) Nucleated RBC Absolute Count (auto) 0.00 K/uL Glomerular Filtration Rate Calc > 60.0 Calcium Level 9.3 mg/dl (8.4-10.2) Magnesium Level 1.7 mg/dl (1.7-2.2) Total Bilirubin 0.6 mg/dl (0.2-1.3) Aspartate Amino Transf (AST/SGOT) 21 U/L (0-35) Alanine Aminotransferase (ALT/SGPT) 18 U/L (0-56) Alkaline Phosphatase 68 U/L (0-126) Total Protein 7.4 gm/dl (6.3-8.2) Albumin 4.0 g/dl (3.5-5.0) Salicylates Level < 10 mg/L Salicylate Last Dose Date unk Acetaminophen Level < 10 ug/ml Serum Alcohol < 10 mg/dl Toxicology Test 05/09/17 00:00 05/09/17 19:00 Urine Opiates Screen Negative Urine Barbiturates Screen Negative Ur Tricyclic Antidepressants Screen Negative Urine Phencyclidine Screen Negative Urine Amphetamines Screen Negative Urine Benzodiazepines Screen Negative Urine Cocaine Screen Negative Urine Cannabinoids Screen Positive Salicylates Level < 10 mg/L Salicylate Last Dose Date unk Acetaminophen Level < 10 ug/ml Serum Alcohol < 10 mg/dl Urinalysis Test 05/09/17 00:00 Urine Color Yellow Urine Clarity Clear Urine pH 5.0 pH (4.8-9.5) Urine Specific [place] 1.015 Urine Protein Negative mg/dL (NEGATIVE) Urine Glucose (UA) Negative mg/dL (NEGATIVE) Urine Ketones Trace mg/dL (NEGATIVE) Urine Blood Negative (NEGATIVE) Urine Nitrite Negative (NEGATIVE) Urine Bilirubin Negative (NEGATIVE) Urine Urobilinogen Negative mg/dL (0.2-1.9) Urine Leukocyte Esterase Negative (NEGATIVE) Urine RBC <1 /HPF (0-2/HPF) Urine WBC 1 /HPF (0-5/HPF) Urine Squamous Epithelial Cells Many /LPF (</=FEW) Urine Bacteria Few /HPF (NONE-FEW) Urine Mucus Few /HPF (NONE-FEW) ED Course/Re-evaluation ED Course 05/09/2017 6:49:40 pm plan at this time will be to perform medical screening exam we will have behavioral medicine talked to the patient we'll discuss admission with the on-call psychiatrist. Re-evaluation 05/09/2017 7:26:21 pm patient was accepted by for behavioral medicine. Decision to Disposition Date: May 09, 2017 Decision to Disposition Time: 19:25 Depart Departure Latest Vital Signs Vital Signs Date Time Temp Pulse Resp B/P (MAP) Pulse Ox O2 Delivery O2 Flow Rate FiO2 05/09/17 18:28 98.0 83 14 118/75 94 Room Air Impression: Primary Impression: Adjustment reaction Condition: Condition Unchanged Disposition: XFER TO [facility] Problem Qualifiers Primary Impression: Adjustment reaction Adjustment disorder type: with anxious mood Qualified Codes: F43.22 - Adjustment disorder with anxiety MIYA JOHNSON MD May 09, 2017 18:26
[2017-05-09] MEDS ORDERED: OLANZapine ZYDIS ODT 5MG TABDP PO ONE (18:45)
[2017-05-09 19:10] LABS: PLATELET COUNT, AUTOMATED 258 K/uL (150-450)
[2017-05-10] MEDS ORDERED: MIRT-1 PO (12:28)
[2017-05-10] MEDS ORDERED: MELO-205 PO (12:28)
[2017-05-10] MEDS ORDERED: OLAN5TAB27 PO (12:28)
[2017-05-10] MEDS ORDERED: ONDA4TAB9 PO (12:28)
== END 2017-05-09 20:15 ==
LOC: ER 18:40
DX: F43.22 Adjustment disorder with anxiety (principal); F15.11 Other stimulant abuse, in remission; Z87.891 Personal history of nicotine dependence
CPT/HCPCS: 36415; 80305; 81001; 83735; 84443; 85025; 99284; A9270; G0480; 80320; 80329; 82040; 82247; 82310; 82374; 82435; 82565; 82947; 84075; 84132; 84155; 84295; 84450; 84460; 84520

== ENCOUNTER 2017-05-09 19:55 | Inpatient (IN) | payer MEDICARE, MEDICAID ==
[2016-03-09 17:33] VITALS: Wt 61.2 kg
[2017-05-09 20:41] VITALS: BP 117/81
[2017-05-09] MEDS: MIRTAZAPINE 15 MG TAB PO SCH (21:26)
[2017-05-10 06:16] VITALS: BP 90/45
[2017-05-10] MEDS: MELOXICAM 7.5 MG TAB PO SCH (10:42)
[2017-05-10] MEDS ORDERED: SUMAtriptan SUCC 25MG TAB PO PRN (10:50)
[2017-05-10] MEDS: GABAPENTIN 300 MG CAP PO SCH ×3 (10:59→20:25)
[2017-05-10] MEDS ORDERED: OLAN5TAB27 PO (12:28)
[2017-05-10] MEDS ORDERED: ONDA4TAB9 PO (12:28)
[2017-05-10] MEDS ORDERED: MELO-205 PO (12:28)
[2017-05-10] MEDS ORDERED: MIRT-1 PO (12:28)
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
[2017-05-10] MEDS: OLANZapine 5 MG TAB PO SCH (20:25)
[2017-05-10] MEDS: MIRTAZAPINE 15 MG TAB PO SCH (20:26)
[2017-05-10 20:58] VITALS: BP 113/72
[2017-05-11 05:54] VITALS: BP 90/50
[2017-05-11] MEDS: GABAPENTIN 300 MG CAP PO SCH ×3 (08:26→21:06)
[2017-05-11] MEDS: MELOXICAM 7.5 MG TAB PO SCH (08:26)
--- NOTE | 2017-05-11 10:32 | BHS Progress Note ---
[facility] - Subjective Progress Notes Subjective Patient doing well today, and reporting good sleep and improved mood. Patient not seeking pain medications today, but reports opiates prescribed to her have rekindled her opiate addiction to some point. Will continue current medications and set up outpatient care, for potential discharge tomorrow. Suicidal Ideation: None Homicidal Ideation: None [facility] - Objective Physical Exam Vital Signs Vital Signs Date Time Temp Pulse Resp B/P (MAP) Pulse Ox O2 Delivery O2 Flow Rate FiO2 05/11/17 05:54 99.6 46 15 90/50 (63) 98 Room Air Hematology Test 05/09/17 00:00 Urine HCG, Qualitative Negative (NEGATIVE) Chemistry Test 05/09/17 00:00 Urine HCG, Qualitative Negative (NEGATIVE) Urinalysis Test 05/09/17 00:00 Urine HCG, Qualitative Negative (NEGATIVE) Muscle Strength and Tone: WNL Gait and Station: Steady [facility] Medications Reviewed: Side Effects, Benefits of Medication, Risks Allergies Reviewed: Yes Mental Status Exam General Appearance: Casual, Well Groomed, Good Eye Contact, Cooperative, Polite , Good Interaction, No Unkept, No Tearful, Psychomotor Agitation (minimal), No Psychomotor Retardation, No Bizarre Mannerisms, No Tics Speech: Clear, Spontaneous, Normal Rate, Normal Rhythm, Normal Volume, Normal Tone, No Slurred, No Garbled, No Rambling, No Inappropriate Mood: Dysthmic/Depressed (improved) Affect: Full and Appropriate, Calm, No Withdrawn, No Tearful, No Anxious, No Agitated Thought Process: Organized, Logical, Goal Directed, No Loose Associations, No Flight of Ideas Thought Content: No Suicidal Ideation, No Homicidal Ideation, No Delusions, No Auditory Halllucinations, No Visual Hallucinations, No Thought Broadcasting, No Ideas of Reference, No Obsessions, No Compulsions Sensorium: Clear Cognition: Alert & Oriented-Person, Alert & Oriented-Place, Alert & Oriented- Time, Zyvap-Yfjypukp-Swneynzbc Memory: Immediate, Recent, Remote Intelligence: Average Insight Judgment: Poor (maladaptive stress coping mechanisms continue. ) [facility] Assessment and Plan [id number] Encounter Date: May 11, 2017 Ensm-ez-Lqus Encounter Time: 10:00 [facility] Plan: Necessary Precautions, Individual/Group Therapy, Admin/Titrate Meds, Educate Patient Tobacco Medications: Not Appropriate Condition Multpiple Antipsychotics Used: No Problems: (1) Bipolar II disorder Optional Permanent Comment: rule out personality disorder unspecified, strong cluster B traits. Last Edited By: Francine Omer on May 11, 2017 10:30 Status: Chronic (2) Cannabis use disorder, moderate, dependence Status: Chronic (3) Posttraumatic stress disorder Status: Chronic Condition 1. continue treatment. 2. possible discharge tomorrow. FRANCINE OMER MD May 11, 2017 10:32
[2017-05-11] MEDS: MIRTAZAPINE 15 MG TAB PO SCH (21:06)
[2017-05-11] MEDS: OLANZapine 5 MG TAB PO SCH (21:06)
[2017-05-11 21:08] VITALS: BP 123/70
[2017-05-12 06:23] VITALS: BP 96/51
[2017-05-12] MEDS: MELOXICAM 7.5 MG TAB PO SCH (08:13)
[2017-05-12] MEDS: GABAPENTIN 300 MG CAP PO SCH (08:13)
[2017-05-12] MEDS ORDERED: GABA-490 PO (09:25)
[2017-05-12] MEDS ORDERED: SUMA25TA26 PO (09:29)
--- NOTE | 2017-05-13 17:38 | DISCHARGE SUMMARY ---
Patient was seen for this discharge around 0900 hours on May 12, 2017. FINAL DIAGNOSES PER DSM-V Bipolar 2 disorder, recent depressed. Posttraumatic stress disorder. Cannabis use disorder moderate. Rule out personality disorder, NOS. Strong cluster B traits do exist. Recent medical stressors including herpes zoster. REASON FOR ADMISSION This is a 37-year-old female who is somewhat well known to the [facility] at [facility]. Please see H and P for full details. Patient was last on the unit around October of 2016. Patient returns to the emergency room requesting admission, stating she has been off her medications and she does not have an outpatient provider, and patient feeling unsafe at home. Patient was admitted without incident. No parasuicidal behaviors were noted. Initially patient very dramatic on the unit, seemingly desperate to come up with symptoms that would require opiate-based pain medication. Patient has a history of opiate addiction. Patient was eventually able to not further imply the need for opiate medications on the unit. Patient then at some times becoming very cooperative and pleasant with care. Patient very resistant to the thought that the continued use of marijuana could be a contributor to her mood instability. Patient very defensive of marijuana and does not demonstrate any intention of stopping. In any event, patient continued to improve and was placed on her outpatient medications, did participate in treatment and patient was discharged to home. PHYSICAL EXAMINATION GENERAL: Please see emergency room note. Notable for a 37-year-old female in no acute medical distress. VITAL SIGNS: At the time of admission temperature 98.0, pulse 83, respiratory rate 14, blood pressure 118/75, pulse oximetry 94 on room air. At the time of discharge from Behavioral Health Unit, temperature 99.2, pulse 70, respiratory rate 15, blood pressure 96/51 and pulse oximetry 97 on room air. LABORATORY DATA screen negative. At the time of admission TSH 1.04, normal limits. CBC unremarkable. CMP notable for potassium low at 3.4 upon admission. Urinalysis unremarkable. Toxicology screen positive for cannabis, negative for any serum alcohol and negative for other substances of abuse. MENTAL STATUS EXAMINATION AT THE TIME OF DISCHARGE GENERAL APPEARANCE, BEHAVIOR AND ATTITUDE: This is a 37-year-old female, well groomed, making good eye contact. No bizarre mannerisms or tics. Patient defensive when talking about cannabis, but overall appropriate. No psychomotor agitation or retardation. SPEECH: Within normal limits, regular rate, rhythm volume and tone. MOOD: Described as good. AFFECT: Full and mood congruent. THOUGHT PROCESSES: Logical, goal directed. No loose associations or flight of ideas. THOUGHT CONTENT: Free of auditory or visual hallucinations, ideas of reference , thought broadcastings, delusions, obsessions, compulsions. Patient adamantly denying suicidal or homicidal ideation. SENSORIUM: Clear. COGNITION: Alert and oriented to person, place, time and situation. MEMORY: Immediate, recent and remote estimated intact. INTELLIGENCE: Average based on interview. INSIGHT AND JUDGMENT: Maladaptive stress coping mechanisms associated with cluster B personality traits certainly exist. RESULTS OF TESTING IMAGING: None. LABORATORY DATA: See above. PSYCHOLOGICAL TESTING: Not done. CONSULTATIONS: None. TREATMENT Patient received medications, participated in individual and group therapy. HOSPITAL COURSE Patient initially somewhat combative and accusatory, which has been similar on previous admissions, later becoming more compliant with treatment. Patient resistant to any acceptance that marijuana use could be a problem in her life. CONDITION OF PATIENT ON DISCHARGE Stable. Considered minimal risk to herself or others and appropriate for outpatient care. DISPOSITION Patient discharged to home in the care of her mother. She would followup with outpatient medication and therapy management as scheduled. She was given the crisis line should symptoms return, and patient was once again strongly encouraged to stop all use of cannabis, and patient agreed to avoid the relapse into opiate dependence. MEDICATIONS AT THE TIME OF DISCHARGE 1. Olanzapine 5 mg at bedtime. 2. Mobic 7.5 mg daily as needed for pain. 3. Neurontin 300 mg three times daily. 4. Remeron 15 mg at bedtime. 5. Imitrex could also be used sparingly at 25 mg p.r.n. for migraine headache. Patient would discontinue Valtrex at this time as herpes zoster is in remission and would no longer take ondansetron. Risks, benefits and alternatives of the above discharge plan were discussed. Informed consent was given to proceed with above discharge plan by this competent patient, and patient's mother present at the time of discharge. DEBBIE
== END 2017-05-12 10:13 | disposition home or self-care (01) | DRG 885 ==
LOC: BHS 19:55
PROVIDERS: ADMIT Psychiatry & Neurology Psychiatry; ATTEND Psychiatry & Neurology Psychiatry
DX: F31.81 Bipolar II disorder (principal); F12.20 Cannabis dependence, uncomplicated; F43.12 Post-traumatic stress disorder, chronic; B02.9 Zoster without complications; Z91.5 Personal history of self-harm; F60.9 Personality disorder, unspecified; Z81.8 Family history of other mental and behavioral disorders; Z62.810 Personal history of physical and sexual abuse in childhood
CPT/HCPCS: 81025

== ENCOUNTER 2017-11-25 08:41 | Emergency (ER) | payer MEDICARE, MEDICAID ==
[2016-03-09 17:33] VITALS: Wt 56.7 kg
[~2017-11-25 08:41] MED LIST changes: +GABA-490 PO; -HYDR-4309 PO; +HYDR-653 PO; +MELO-205 PO; +OLAN5TAB27 PO; +ONDA4TAB9 PO; +SUMA25TA26 PO
--- NOTE | 2017-11-25 08:46 | ER Report ---
History and Physical Time Seen By MD: 08:45 HPI/ROS CHIEF COMPLAINT: Palpitations chest discomfort HISTORY OF PRESENT ILLNESS: Patient is a 37-year-old female well-known to the emergency department who presents with complaint of palpitations and anxiety along with chest discomfort. She's had these symptoms before but noticed an increasing frequency in the last B days. Patient does consume some caffeine usually espresso in the morning also has green tea at nighttime. She denies any illicit drug use. He is currently off her antianxiety medicine as well as her gabapentin but otherwise is doing well from her postherpetic neuralgia. Patient states that she has experienced 2-3 anxiety attacks in the last 2-3 days. She did decide to come to the emergency department today after her most recent panic attack and episode of palpitations. REVIEW OF SYSTEMS: Constitutional: No fever, no chills. Eyes: No discharge. ENT: No sore throat. Cardiovascular: Palpitations, chest discomfort Respiratory: No cough, no shortness of breath. Gastrointestinal: No abdominal pain, no vomiting. Genitourinary: No hematuria. Musculoskeletal: No back pain. Skin: No rashes. Neurological: No headache. Allergies: Coded Allergies: lamotrigine (Verified Allergy, Severe, 04/26/17) Reports having seizures. Opioids - Morphine Analogues (Verified Allergy, Intermediate, 04/26/17) albuterol sulfate (Verified Allergy, Unknown, STOPPED BREATHING, 04/26/17) oxycodone HCl (Verified Adverse Reaction, Unknown, VOMITTING, 04/26/17) Home Meds Reported Medications Sumatriptan Succinate (IMITREX) 25 Mg Tablet, 25 MG PO QDAY PRN for HEADACHE, #30 05/12/17 Mirtazapine (REMERON) 15 Mg Tablet, 15 MG PO QHS for 1 Day, #30 1 Refill Take one hour prior to intention to sleep 05/10/17 Olanzapine (OLANZAPINE) 5 Mg Tablet, 5 MG PO QHS, #30 1 Refill Take one hour prior to intention to sleep 05/10/17 Hydroxyzine Pamoate (VISTARIL) 25 Mg Capsule, 25 MG PO Q6H PRN for ANXIETY/INSOMNIA, CAPSULE TAKE EVERY SIX HOURS NEEDED FOR ANXIETY OR INSOMNIA 06/13/14 Discontinued Reported Medications Gabapentin (NEURONTIN) 300 Mg Capsule, 300 MG PO TID, #90 CAPSULE 1 Refill 05/12/17 Meloxicam (MELOXICAM) 7.5 Mg Tablet, 7.5 MG PO QDAY for 30 Days, 1 Refill 05/10/17 Past Medical/Surgical History Past medical history for "seizures" that seem to occur when she is stressed or experiencing PTSD. She states history of "strokes" has had evaluations by CT and MRI but these have all been reported within normal limits. Prior history of alcohol, methamphetamine opiate benzodiazepine abuse. History of prior psychiatric inpatient admission secondary to racing thoughts and suicidal ideation. Hx Smoking: Yes Smoking Status: Smoker: Status Unknown Exposure to Second Hand Smoke?: No 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 OCC MARIJUANA) Hx Alcohol Use: Yes Constitutional Vital Sign - Last 24 Hours 11/25/17 08:45 Temp 97.9 Pulse 88 Resp 16 B/P (MAP) 124/68 Pulse Ox 95 O2 Delivery Room Air Physical Exam General/Constitutional: Patient is awake, alert, nontoxic and in no acute r espiratory distress. Head: Normocephalic and atraumatic. Eyes: Conjunctival clear, Pupils are equal and reactive to light. Sclera are clear and anicteric. Ears:External canals are clear. Tympanic membranes are clear with normal landmarks and light reflex. Nares: No rhinorrhea or bleeding. Turbinates are pink and moist. Oropharyngeal: Mucous membranes are moist. There is no pharyngeal erythema or exudate. There are no palatal petechiae. Uvula is midline and symmetrical. Neck: Supple, no adenopathy. Cardiovascular: Heart is regular rate and rhythm without audible murmurs, rubs or gallops. Pulmonary: Lungs are clear to auscultation bilaterally. There are no wheezes, rales, or rhonchi. Chest rise is symmetrical Abdomen: Soft, nontender, no guarding or peritoneal signs. Extremities: No gross deformities, No peripheral cyanosis. Able to move all 4 extremities. Neuro: Alert and oriented X3, Skin: No rashes, skin is warm dry and well perfused. Medical Decision Making Data Points Result Diagram: 11/25/17 0930 11/25/17 0930 Laboratory Hematology Test 11/25/17 09:30 Red Blood Count 4.68 M/uL (4.17-5.56) Mean Corpuscular Volume 90.8 fL (80.0-96.0) Mean Corpuscular Hemoglobin 31.3 pg (26.0-33.0) Mean Corpuscular Hemoglobin Concent 34.5 g/dL (32.0-36.0) Red Cell Distribution Width 12.9 % (11.5-14.5) Mean Platelet Volume 8.5 fL (7.2-11.1) Neutrophils (%) (Auto) 75.5 % (39.4-72.5) Lymphocytes (%) (Auto) 17.0 % (17.6-49.6) Monocytes (%) (Auto) 6.7 % (4.1-12.4) Eosinophils (%) (Auto) 0.3 % (0.4-6.7) Basophils (%) (Auto) 0.5 % (0.3-1.4) Nucleated RBC Relative Count (auto) 0.1 /100WBC Neutrophils # (Auto) 7.5 K/uL (2.0-7.4) Lymphocytes # (Auto) 1.7 K/uL (1.3-3.6) Monocytes # (Auto) 0.7 K/uL (0.3-1.0) Eosinophils # (Auto) 0.0 K/uL (0.0-0.5) Basophils # (Auto) 0.1 K/uL (0.0-0.1) Nucleated RBC Absolute Count (auto) 0.01 K/uL Sodium Level 141 mmol/L (137-145) Potassium Level 3.7 mmol/L (3.5-5.0) Chloride Level 103 mmol/L (98-107) Carbon Dioxide Level 25 mmol/L (22-31) Blood Urea Nitrogen 15 mg/dl (7-18) Creatinine 0.70 mg/dl (0.52-1.04) Glomerular Filtration Rate Calc > 60.0 Random Glucose 94 mg/dl (75-110) Calcium Level 9.8 mg/dl (8.4-10.2) Magnesium Level 1.7 mg/dl (1.7-2.2) Total Bilirubin 0.9 mg/dl (0.2-1.3) Aspartate Amino Transf (AST/SGOT) 20 U/L (0-35) Alanine Aminotransferase (ALT/SGPT) 18 U/L (0-56) Alkaline Phosphatase 57 U/L (0-126) Total Protein 7.6 g/dl (6.3-8.2) Albumin 4.3 g/dl (3.5-5.0) Human Chorionic Gonadotropin, Qual Negative (NEGATIVE) Chemistry Test 11/25/17 09:30 White Blood Count 9.9 k/uL (4.5-11.0) Red Blood Count 4.68 M/uL (4.17-5.56) Hemoglobin 14.7 g/dL (12.0-16.0) Hematocrit 42.5 % (34.0-47.0) Mean Corpuscular Volume 90.8 fL (80.0-96.0) Mean Corpuscular Hemoglobin 31.3 pg (26.0-33.0) Mean Corpuscular Hemoglobin Concent 34.5 g/dL (32.0-36.0) Red Cell Distribution Width 12.9 % (11.5-14.5) Platelet Count 217 K/uL (150-450) Mean Platelet Volume 8.5 fL (7.2-11.1) Neutrophils (%) (Auto) 75.5 % (39.4-72.5) Lymphocytes (%) (Auto) 17.0 % (17.6-49.6) Monocytes (%) (Auto) 6.7 % (4.1-12.4) Eosinophils (%) (Auto) 0.3 % (0.4-6.7) Basophils (%) (Auto) 0.5 % (0.3-1.4) Nucleated RBC Relative Count (auto) 0.1 /100WBC Neutrophils # (Auto) 7.5 K/uL (2.0-7.4) Lymphocytes # (Auto) 1.7 K/uL (1.3-3.6) Monocytes # (Auto) 0.7 K/uL (0.3-1.0) Eosinophils # (Auto) 0.0 K/uL (0.0-0.5) Basophils # (Auto) 0.1 K/uL (0.0-0.1) Nucleated RBC Absolute Count (auto) 0.01 K/uL Glomerular Filtration Rate Calc > 60.0 Calcium Level 9.8 mg/dl (8.4-10.2) Magnesium Level 1.7 mg/dl (1.7-2.2) Total Bilirubin 0.9 mg/dl (0.2-1.3) Aspartate Amino Transf (AST/SGOT) 20 U/L (0-35) Alanine Aminotransferase (ALT/SGPT) 18 U/L (0-56) Alkaline Phosphatase 57 U/L (0-126) Total Protein 7.6 g/dl (6.3-8.2) Albumin 4.3 g/dl (3.5-5.0) Human Chorionic Gonadotropin, Qual Negative (NEGATIVE) EKG/Imaging EKG Interpretation 11/25/2017 9:16:13 am EKG shows normal sinus rhythm with a ventricular rate of 74 bpm there are no significant ST segment or T-wave abnormalities noted, normal stallion keeper Interpretation: Normal Sinus Rhythm ED Course/Re-evaluation Clinical Indication for ER IV: IV Access ED Course 11/25/2017 9:16:34 am patient with palpitations. EKG is unremarkable. Plan at this time will be to check basic CBC electrolytes. Patient does consume caffeinated beverages which may be a trigger to causing premature atrial contractions which is what I suspect that she is feeling. If workup is negative will have patient obtain a 48 hour Holter monitor with results going to [facility] physician's Re-evaluation 11/25/2017 10:54:56 am this time will be to have a 48 hour Holter monitor placed. Results will go to her primary care provider who is Jovita Ayala Decision to Disposition Date: Nov 25, 2017 Decision to Disposition Time: 10:55 Depart Departure Latest Vital Signs Vital Signs Date Time Temp Pulse Resp B/P (MAP) Pulse Ox O2 Delivery O2 Flow Rate FiO2 11/25/17 08:45 97.9 88 16 124/68 95 Room Air Impression: Primary Impression: Palpitations Condition: Improved Disposition: HOME OR SELF-CARE Referrals: JOVITA BYRD Patient Instructions: Palpitations (ED) Additional Instructions: Call and schedule a follow-up appointment with your primary care provider after you completed a Holter monitor MIYA JONHSON MD Nov 25, 2017 08:45
--- NOTE | 2017-11-25 09:23 | EKG ---
FACILITY: [facility] - [place] PATIENT NAME: MIGEL ORTIZ : [id number] MR: [id number] V: [id number] EXAM DATE: ORDERING PHYSICIAN: MIYA JOHNSON TECHNOLOGIST: JEAN Test Reason : PALPITATIONS Blood Pressure : / mmHG Vent. Rate : 074 BPM Atrial Rate : 074 BPM P-R Int : 122 ms QRS Dur : 086 ms QT Int : 376 ms P-R-T Axes : 067 081 061 degrees QTc Int : 417 ms Normal sinus rhythm Normal ECG No previous ECGs available Confirmed by RICARDO COOMBS ([id number]) on 11/25/2017 10:46:17 AM Referred By: ALEX Confirmed By:RICARDO COOMBS
[2017-11-25] MEDS ORDERED: PHENAZOPYRIDINE 100 MG TAB PO SCH (09:25)
[2017-11-25 09:54] LABS: PLATELET COUNT, AUTOMATED 217 K/uL (150-450)
[2017-11-25 11:00] VITALS: BP 119/77
--- NOTE | 2017-11-27 14:26 | RT HOLTER TEST ---
[place] [facility] [place] MIGEL ORTIZ : [id number] MR: [id number] V: [id number] EXAM DATE: ORDERING PHYSICIAN: MIYA JOHNSON TECHNOLOGIST: Eladio Hook-up date: 2017-11-25 11:08:00 Duration: 45:27:00 Test Indications: ANXIETY, CP Medications: NONE LISTED [id number] QRS complexes 3 Ventricular ectopics which represent <1 % of total QRS comp. 27 Supraventricular ectopics which represent <1 % of total QRS comp. * Paced QRS complexes which represent % of total QRS comp. VENTRICULAR ECTOPY 3 Isolated 0 Bigeminal Cycles 0 Couplets 0 Runs 0 Beats in Runs * Beats LONGEST at * BPM at :: -- * Beats FASTEST at * BPM at :: -- SUPRAVENTRICULAR ECTOPY 25 Isolated 1 Couplets 0 Runs 0 Beats in Runs * Beats LONGEST at * BPM at :: -- * Beats FASTEST at * BPM at :: -- HEART RATES 54 MIN at 07:26:33 2017-11-27 78 AVG 166 MAX at 19:36:35 2017-11-26 LONGEST RR 1.192 secs at 11:36:34 2017-11-25 S-T LEVELS Channel 1 -12.800 mm MIN at 11:08:00 2017-11-25 -12.800 mm MAX at 11:08:00 2017-11-25 Channel 2 -12.800 mm MIN at 11:08:00 2017-11-25 -12.800 mm MAX at 11:08:00 2017-11-25 Channel 3 -12.800 mm MIN at 11:08:00 2017-11-25 -12.800 mm MAX at 11:08:00 2017-11-25 Normal sinus rhythm manitained throughout study. Infrequent isolated PACs. Very infrequent isolated PVCs No significant abnormalities noted in study. Confirmed by Jose Chun ([id number]) on 11/27/2017 2:26:20 PM Referred By: Overread By: Jose Carbajal
== END 2017-11-25 11:17 | disposition home or self-care (01) ==
LOC: ER 08:48
DX: R00.2 Palpitations (principal)
CPT/HCPCS: 82040; 82247; 82310; 82374; 82435; 82565; 82947; 83735; 84075; 84132; 84155; 84295; 84443; 84450; 84460; 84520; 84703; 85025; 93005; 93225; 99283

== ENCOUNTER 2018-02-23 13:09 | Emergency (ER) | payer MEDICARE, MEDICAID ==
[2016-03-09 17:33] VITALS: Wt 59.0 kg
[~2018-02-23 13:09] MED LIST changes: -METR-160 PO; +METR500T15 PO
--- NOTE | 2018-02-23 13:14 | ER Report ---
History and Physical Time Seen By MD: 13:13 HPI/ROS CHIEF COMPLAINT: Lower abdominal pain HISTORY OF PRESENT ILLNESS: This is a 38-year-old female who presents to the emergency department for lower abdominal pain. Patient states that when she woke this morning she had significant suprapubic abdominal pain. Stabbing knifelike pain. No vaginal discharge or bleeding. No changes in bowel movements. No dysuria. No nausea or vomiting. No other complaints. REVIEW OF SYSTEMS: Respiratory: No cough, no dyspnea. Cardiovascular: No chest pain, no palpitations. Gastrointestinal: As above. Musculoskeletal: No back pain. Allergies: Coded Allergies: lamotrigine (Verified Allergy, Severe, 02/23/18) Reports having seizures. Opioids - Morphine Analogues (Verified Allergy, Intermediate, 02/23/18) albuterol sulfate (Verified Allergy, Unknown, STOPPED BREATHING, 02/23/18) oxycodone HCl (Verified Adverse Reaction, Unknown, VOMITTING, 02/23/18) Home Meds Active Scripts Sulfamethoxazole/Trimet 800-160 Mg Tab (BACTRIM DS TABLET) 1 Each Tablet, 1 TAB PO Q12H for 3 Days, #6 TAB 0 Refills Prov:ISHAN RIOS BIT SHARPENER-BC 02/23/18 Reported Medications [cbd] No Conflict Check, 2 GTT PO QDAY PRN for ANXIETY 02/23/18 Metoprolol Tartrate (METOPROLOL TARTRATE) 25 Mg Tablet, 12.5 TAB PO BID, TAB 02/23/18 Sumatriptan Succinate (IMITREX) 25 Mg Tablet, 25 MG PO QDAY PRN for HEADACHE, #30 05/12/17 Mirtazapine (REMERON) 15 Mg Tablet, 15 MG PO QHS for 1 Day, #30 1 Refill Take one hour prior to intention to sleep 05/10/17 Olanzapine (OLANZAPINE) 5 Mg Tablet, 5 MG PO QHS, #30 1 Refill Take one hour prior to intention to sleep 05/10/17 Hydroxyzine Pamoate (VISTARIL) 25 Mg Capsule, 25 MG PO Q6H PRN for ANXIETY/INSOMNIA, CAPSULE TAKE EVERY SIX HOURS NEEDED FOR ANXIETY OR INSOMNIA 06/13/14 Past Medical/Surgical History The patient has a past medical and surgical history of shingles, TIAs since age 13, PTSD, headaches, murmur, asthma, pneumonia, uterine cysts and fibroids, urinary tract infections, arthritis, chronic back pain, wears glasses, hard of hearing in left ear, psoriasis, history of meth use, still uses marijuana, bipolar, rage, PTSD, situational anorexia, depression, severe dental disease. Reviewed Nurses Notes: Yes Hx Smoking: Yes Smoking Status: Smoker: Status Unknown Exposure to Second Hand Smoke?: No 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 OCC MARIJUANA) Hx Alcohol Use: Yes Constitutional Vital Sign - Last 24 Hours 02/23/18 02/23/18 02/23/18 02/23/18 13:17 13:21 13:30 13:39 Temp 98.4 Pulse 66 63 Resp 14 B/P (MAP) 107/76 (86) 107/76 123/72 (89) Pulse Ox 94 95 O2 Delivery Room Air Room Air 02/23/18 02/23/18 02/23/18 02/23/18 13:44 14:14 14:21 14:30 Pulse 69 66 B/P (MAP) 119/74 (89) 116/83 (94) Pulse Ox 96 95 02/23/18 02/23/18 02/23/18 02/23/18 14:44 14:49 15:00 15: Pulse 63 61 64 B/P (MAP) 124/82 (96) Pulse Ox 94 96 94 02/23/18 15:47 B/P (MAP) 116/76 (89) Physical Exam General Appearance: The patient is alert, has no immediate need for airway protection and no current signs of toxicity. Eyes: Pupils equal and round no injection. Respiratory: Chest is non tender, lungs are clear to auscultation. Cardiac: regular rate and rhythm. Gastrointestinal: Abdomen is soft , generalized mid abdominal pain, p eriumbilical with increased pain to the right lower quadrant, no masses, no abdominal bruits, normoactive bowel sounds. Musculoskeletal: Neck: Neck is supple and non tender. Extremities have full range of motion and are non tender. Skin: No rashes or lesions. DIFFERENTIAL DIAGNOSIS: After history and physical exam differential diagnosis was considered for abdominal pain in a female including but not limited to ovarian cyst, pelvic inflammatory disease, ovarian torsion, urinary tract infect ion, and appendicitis. Medical Decision Making Data Points Result Diagram: 02/23/18 1318 02/23/18 1318 Laboratory Hematology Test 02/23/18 13:15 02/23/18 13:18 Urine Color Yellow Urine Clarity Cloudy Urine pH 7.0 pH (4.8-9.5) Urine Specific [place] 1.018 Urine Protein Negative mg/dL (NEGATIVE) Urine Glucose (UA) Negative mg/dL (NEGATIVE) Urine Ketones Trace mg/dL (NEGATIVE) Urine Blood Negative (NEGATIVE) Urine Nitrite Positive (NEGATIVE) Urine Bilirubin Negative (NEGATIVE) Urine Urobilinogen 4.0 mg/dL (0.2-1.9) Urine Leukocyte Esterase Negative (NEGATIVE) Urine RBC None /HPF (0-2/HPF) Urine WBC 3 /HPF (0-5/HPF) Urine Squamous Epithelial Cells Many /LPF (</=FEW) Urine Amorphous Crystals Moderate /HPF Urine Bacteria Negative /HPF (NONE-FEW) Urine Mucus Few /HPF (NONE-FEW) Urine HCG, Qualitative Negative (NEGATIVE) Red Blood Count 5.43 M/uL (4.17-5.56) Mean Corpuscular Volume 89.5 fL (80.0-96.0) Mean Corpuscular Hemoglobin 31.1 pg (26.0-33.0) Mean Corpuscular Hemoglobin Concent 34.8 g/dL (32.0-36.0) Red Cell Distribution Width 13.1 % (11.5-14.5) Mean Platelet Volume 8.5 fL (7.2-11.1) Neutrophils (%) (Auto) 53.4 % (39.4-72.5) Lymphocytes (%) (Auto) 37.3 % (17.6-49.6) Monocytes (%) (Auto) 7.5 % (4.1-12.4) Eosinophils (%) (Auto) 1.0 % (0.4-6.7) Basophils (%) (Auto) 0.8 % (0.3-1.4) Nucleated RBC Relative Count (auto) 0.0 /100WBC Neutrophils # (Auto) 5.3 K/uL (2.0-7.4) Lymphocytes # (Auto) 3.7 K/uL (1.3-3.6) Monocytes # (Auto) 0.7 K/uL (0.3-1.0) Eosinophils # (Auto) 0.1 K/uL (0.0-0.5) Basophils # (Auto) 0.1 K/uL (0.0-0.1) Nucleated RBC Absolute Count (auto) 0.00 K/uL Sodium Level 141 mmol/L (137-145) Potassium Level 3.9 mmol/L (3.5-5.0) Chloride Level 108 mmol/L (98-107) Carbon Dioxide Level 22 mmol/L (22-31) Blood Urea Nitrogen 10 mg/dl (7-18) Creatinine 0.90 mg/dl (0.52-1.04) Glomerular Filtration Rate Calc > 60.0 Random Glucose 93 mg/dl (75-110) Calcium Level 10.0 mg/dl (8.4-10.2) Total Bilirubin 1.9 mg/dl (0.2-1.3) Aspartate Amino Transf (AST/SGOT) 27 U/L (0-35) Alanine Aminotransferase (ALT/SGPT) 15 U/L (0-56) Alkaline Phosphatase 88 U/L (0-126) Total Protein 8.6 g/dl (6.3-8.2) Albumin 4.8 g/dl (3.5-5.0) Lipase 105 U/L (23-300) Chemistry Test 02/23/18 13:15 02/23/18 13:18 Urine Color Yellow Urine Clarity Cloudy Urine pH 7.0 pH (4.8-9.5) Urine Specific [place] 1.018 Urine Protein Negative mg/dL (NEGATIVE) Urine Glucose (UA) Negative mg/dL (NEGATIVE) Urine Ketones Trace mg/dL (NEGATIVE) Urine Blood Negative (NEGATIVE) Urine Nitrite Positive (NEGATIVE) Urine Bilirubin Negative (NEGATIVE) Urine Urobilinogen 4.0 mg/dL (0.2-1.9) Urine Leukocyte Esterase Negative (NEGATIVE) Urine RBC None /HPF (0-2/HPF) Urine WBC 3 /HPF (0-5/HPF) Urine Squamous Epithelial Cells Many /LPF (</=FEW) Urine Amorphous Crystals Moderate /HPF Urine Bacteria Negative /HPF (NONE-FEW) Urine Mucus Few /HPF (NONE-FEW) Urine HCG, Qualitative Negative (NEGATIVE) White Blood Count 10.0 k/uL (4.5-11.0) Red Blood Count 5.43 M/uL (4.17-5.56) Hemoglobin 16.9 g/dL (12.0-16.0) Hematocrit 48.6 % (34.0-47.0) Mean Corpuscular Volume 89.5 fL (80.0-96.0) Mean Corpuscular Hemoglobin 31.1 pg (26.0-33.0) Mean Corpuscular Hemoglobin Concent 34.8 g/dL (32.0-36.0) Red Cell Distribution Width 13.1 % (11.5-14.5) Platelet Count 280 K/uL (150-450) Mean Platelet Volume 8.5 fL (7.2-11.1) Neutrophils (%) (Auto) 53.4 % (39.4-72.5) Lymphocytes (%) (Auto) 37.3 % (17.6-49.6) Monocytes (%) (Auto) 7.5 % (4.1-12.4) Eosinophils (%) (Auto) 1.0 % (0.4-6.7) Basophils (%) (Auto) 0.8 % (0.3-1.4) Nucleated RBC Relative Count (auto) 0.0 /100WBC Neutrophils # (Auto) 5.3 K/uL (2.0-7.4) Lymphocytes # (Auto) 3.7 K/uL (1.3-3.6) Monocytes # (Auto) 0.7 K/uL (0.3-1.0) Eosinophils # (Auto) 0.1 K/uL (0.0-0.5) Basophils # (Auto) 0.1 K/uL (0.0-0.1) Nucleated RBC Absolute Count (auto) 0.00 K/uL Glomerular Filtration Rate Calc > 60.0 Calcium Level 10.0 mg/dl (8.4-10.2) Total Bilirubin 1.9 mg/dl (0.2-1.3) Aspartate Amino Transf (AST/SGOT) 27 U/L (0-35) Alanine Aminotransferase (ALT/SGPT) 15 U/L (0-56) Alkaline Phosphatase 88 U/L (0-126) Total Protein 8.6 g/dl (6.3-8.2) Albumin 4.8 g/dl (3.5-5.0) Lipase 105 U/L (23-300) Urinalysis Test 02/23/18 13:15 Urine Color Yellow Urine Clarity Cloudy Urine pH 7.0 pH (4.8-9.5) Urine Specific [place] 1.018 Urine Protein Negative mg/dL (NEGATIVE) Urine Glucose (UA) Negative mg/dL (NEGATIVE) Urine Ketones Trace mg/dL (NEGATIVE) Urine Blood Negative (NEGATIVE) Urine Nitrite Positive (NEGATIVE) Urine Bilirubin Negative (NEGATIVE) Urine Urobilinogen 4.0 mg/dL (0.2-1.9) Urine Leukocyte Esterase Negative (NEGATIVE) Urine RBC None /HPF (0-2/HPF) Urine WBC 3 /HPF (0-5/HPF) Urine Squamous Epithelial Cells Many /LPF (</=FEW) Urine Amorphous Crystals Moderate /HPF Urine Bacteria Negative /HPF (NONE-FEW) Urine Mucus Few /HPF (NONE-FEW) Urine HCG, Qualitative Negative (NEGATIVE) [place] [facility] [place] Ign[place] And[place] : 1980 Visit/Account:[id number] Date of Sevice: 02/23/2018 CT ABDOMEN PELVIS W/ CON HISTORY: Lower abdomen pain, constant stabbing since 5:00 AM TECHNIQUE: Following administration of IV contrast contiguous axial images acquired through the abdomen/pelvis. Coronal and sagittal reformatting also performed.Dose Lowering Technique One of the following dose optimization techniques was utilized in the performance of this exam: Automated exposure control; adjustment of the mA and/or kV according to the patient's size; or use of an iterative reconstruction technique. Specific details can be referenced in the facility's radiology CT exam operational policy. CONTRAST: 75 mL Isovue-370 COMPARISON: None. FINDINGS: Visualized lung bases: There is a 2 mm subpleural noncalcified nodule lateral aspect left lower lobe best seen on image three of series 3 Hepatobiliary: There is a focal area of fatty infiltration adjacent to the falciform ligament. Spleen: Spleen is borderline enlarged measuring 13.4 cm in length Adrenals: Negative. Pancreas: Negative. Kidneys ureters or bladder: Negative. Genitalia: Uterus appears mildly prominent. There is a 1.9 cm hyperdense round mass anterior aspect uterine fundus could represent a fibroid. Right ovary appears prominent contains multiple round hypoattenuating lesions which may represent cysts versus hemorrhagic cysts. One has an irregular enhancing wall. There are small amount of free pelvic fluid. Extensive collateral vessels are identified within the pelvis GI: The appendix is visualized and does not appear inflamed. There is no evidence of bowel obstruction. Vessels/spaces/nodes: Negative. Bones/soft tissues: There is an S-shaped scoliosis of the thoracolumbar spine. There is a small umbilical hernia containing fat Additional findings: None pertinent. IMPRESSION: Spleen is borderline enlarged Uterus is mildly prominent. Is a 1.9 cm hyperdense round mass anterior aspect uterine fundus which could represent a fibroid The right ovary appears prominent containing multiple round hypoattenuating lesions which may represent cysts versus hemorrhagic cysts. One has an irregular enhancing wall. There is also small amount of free pelvic fluid. This could be evaluated with pelvic ultrasound. Also incidentally noted are extensive collateral vessels in the pelvis The appendix is visualized and does not appear inflamed Report Dictated By: Lolly Moralez MD at 02/23/2018 2:29 PM Report E-Signed By: Lolly Moralez MD at 02/23/2018 2:46 PM WSN:[email or web address] ED Course/Re-evaluation Clinical Indication for ER IV: Hydration, IV Access ED Course The patient was admitted to room. A history of physical were obtained. Differential diagnoses were considered. A CBC, CMP, UA were collected. Patient was given a 1 L normal saline bolus. CBC showing hemoglobin and hematocrit 16.9 and 48.6, chemistry showing chloride 108, total bilirubin 1.9, UA with nitrites, showing positive urinary tract infection. A CT of the abdomen and pelvis was obtained showing Borderline splenectomy, a uterine fibroid, patient is aware of the fibroid, ovarian cysts and a normal appendix. He did expand the patient ahead and start her on antibiotics, for the urinary tract infection. I did tell her she needs to follow-up with her primary care provider and OUTREACH EDUCATOR within 1 week for reevaluation. The patient expressed understanding and was discharged home. Note discussion below. Patient states having relief after Norflex. 02/23/2018 3:42:08 pm as the patient was written a per discharge, she was given 1000 mg of acetaminophen, she refused to have her IV removed and she said that she needs something else for her pain. I did go back and speak with her, and Scott BRITO, was at the bedside as well, I did tell the patient that I could not give her any additional ibuprofen or NSAIDs as she took 1000 mg earlier today, therefore I did give her the acetaminophen. I also explained to her that she is on our treatment program and I'm not able to give her narcotics, the patient began to cry and said that she's got a lot of pain and "I don't want anything like narcotics", I did tell her that I would start her antibiotics now and I will give her some Norflex to see if this would help with some of the localized muscle tension that she is having. Patient was in agreement with this plan of ca re. Decision to Disposition Date: Feb 23, 2018 Decision to Disposition Time: 15:06 Depart Departure Latest Vital Signs Vital Signs Date Time Temp Pulse Resp B/P (MAP) Pulse Ox O2 Delivery O2 Flow Rate FiO2 02/23/18 15:47 116/76 (89) 02/23/18 15:19 64 94 02/23/18 13:39 Room Air 02/23/18 13:21 98.4 14 Impression: Primary Impression: UTI (urinary tract infection) Additional Impression: Ovarian cyst Condition: Improved Disposition: HOME OR SELF-CARE Referrals: RESPIRATORY THERAPY TECHNICIAN New Scripts Sulfamethoxazole/Trimet 800-160 Mg Tab (BACTRIM DS TABLET) 1 Each Tablet 1 TAB PO Q12H for 3 Days, #6 TAB 0 Refills Prov: ISHAN RIOS 02/23/18 Patient Instructions: Ovarian Cyst (ED), Urinary Tract Infection in Women (ED) Additional Instructions: You have a urinary tract infection as well as ovarian cysts that are causing your pain. Take the Bactrim as directed for the UTI. Take 800mg Ibuprofen every 8 hours as needed for pain. Take 500-1000mg Acetaminophen every 8 hours as needed for pain. Drink plenty of water. Get plenty of rest. Follow up with your PCP and OUTREACH EDUCATOR within one week for reevaluation. Return to the ED for any other concerns or worsening symptoms. Problem Qualifiers Primary Impression: UTI (urinary tract infection) Urinary tract infection type: acute cystitis Hematuria presence: without hematuria Qualified Codes: N30.00 - Acute cystitis without hematuria Additional Impression: Ovarian cyst Laterality: right Qualified Codes: N83.201 - Unspecified ovarian cyst, right side ISHAN RIOS-SUKI Feb 23, 2018 13:14
[2018-02-23] MEDS ORDERED: cbd PO (13:26)
[2018-02-23] MEDS ORDERED: METO25TA93 PO (13:26)
[2018-02-23] MEDS ORDERED: NS(*) 0.9% 1000 ML BAG 1,000 ML IV ONE (13:33)
[2018-02-23 13:45] LABS: PLATELET COUNT, AUTOMATED 280 K/uL (150-450)
[2018-02-23] MEDS ORDERED: IOPAMIDOL 76% 100 ML INFUS BTL 100 ML ONE (14:00)
--- NOTE | 2018-02-23 14:55 | RADIOLOGY IMAGING REPORT ---
FACILITY: [facility] PATIENT NAME: Ignacio Andrade : 1980 MR: [id number] V: [id number] EXAM DATE: ORDERING PHYSICIAN: ISHAN RIOS TECHNOLOGIST: Location: [facility] [place] Patient: Ignacio Andrade : 1980 Visit/Account:[id number] Date of Sevice: 02/23/2018 CT ABDOMEN PELVIS W/ CON HISTORY: Lower abdomen pain, constant stabbing since 5:00 AM TECHNIQUE: Following administration of IV contrast contiguous axial images acquired through the abdom en/pelvis. Coronal and sagittal reformatting also performed.Dose Lowering Technique One of the following dose optimization techniques was utilized in the performance of this exam: Autom ated exposure control; adjustment of the mA and/or kV according to the patient's size; or use of an i terative reconstruction technique. Specific details can be referenced in the facility's radiology C T exam operational policy. CONTRAST: 75 mL Isovue-370 COMPARISON: None. FINDINGS: Visualized lung bases: There is a 2 mm subpleural noncalcified nodule lateral aspect left lower lobe best seen on image three of series 3 Hepatobiliary: There is a focal area of fatty infiltration adjacent to the falciform ligament. Spleen: Spleen is borderline enlarged measuring 13.4 cm in length Adrenals: Negative. Pancreas: Negative. Kidneys ureters or bladder: Negative. Genitalia: Uterus appears mildly prominent. There is a 1.9 cm hyperdense round mass anterior aspect uterine fundus could represent a fibroid. Right ovary appears prominent contains multiple round hyp oattenuating lesions which may represent cysts versus hemorrhagic cysts. One has an irregular enhanc ing wall. There are small amount of free pelvic fluid. Extensive collateral vessels are identified within the pelvis GI: The appendix is visualized and does not appear inflamed. There is no evidence of bowel obstruct ion. Vessels/spaces/nodes: Negative. Bones/soft tissues: There is an S-shaped scoliosis of the thoracolumbar spine. There is a small umb ilical hernia containing fat Additional findings: None pertinent. IMPRESSION: Spleen is borderline enlarged Uterus is mildly prominent. Is a 1.9 cm hyperdense round mass anterior aspect uterine fundus which c ould represent a fibroid The right ovary appears prominent containing multiple round hypoattenuating lesions which may represe nt cysts versus hemorrhagic cysts. One has an irregular enhancing wall. There is also small amount of free pelvic fluid. This could be evaluated with pelvic ultrasound. Also incidentally noted are e xtensive collateral vessels in the pelvis The appendix is visualized and does not appear inflamed Report Dictated By: Lolly Moralez MD at 02/23/2018 2:29 PM Report E-Signed By: Lolly Moralez MD at 02/23/2018 2:46 PM WSN:[email or web address]
[2018-02-23] MEDS ORDERED: SULF-198 PO (15:09)
[2018-02-23] MEDS ORDERED: ACETAMINOPHEN 500 MG TAB PO ONE (15:10)
[2018-02-23] MEDS ORDERED: TRIMETH/SULFA DS 160-800MG TAB PO ONE (15:40)
[2018-02-23] MEDS ORDERED: ORPHENADRINE 60MG/2ML INJ IVP ONE (15:40)
[2018-02-23 15:47] VITALS: BP 116/76
== END 2018-02-23 16:01 | disposition home or self-care (01) ==
LOC: ER 14:10
DX: N30.00 Acute cystitis without hematuria (principal); N83.201 Unspecified ovarian cyst, right side
CPT/HCPCS: 74177; 81001; 81025; 83690; 85025; 96361; 96374; 99284; A9270; J2360; J7030; Q9967; 82040; 82247; 82310; 82374; 82435; 82565; 82947; 84075; 84132; 84155; 84295; 84450; 84460; 84520

== ENCOUNTER → 2018-03-03 | Outpatient (CLI) | payer MEDICARE, MEDICAID ==
[2016-03-09 17:33] VITALS: BMI 20.7
[~2018-03-03] MED LIST changes: +METO25TA93 PO; +cbd PO
== END ==
LOC: RESP 21:06
PROVIDERS: ATTEND Nurse Practitioner Family
DX: G47.30 Sleep apnea, unspecified (principal); G47.36 Sleep related hypoventilation in conditions classified elsewhere; G47.61 Periodic limb movement disorder

== ENCOUNTER 2018-03-20 16:45 | Emergency (ER) | payer MEDICARE, MEDICAID ==
[2016-03-09 17:33] VITALS: Wt 61.2 kg
[2018-03-20 17:55] LABS: PLATELET COUNT, AUTOMATED 302 K/uL (150-450)
[2018-03-20] MEDS ORDERED: KETOROLAC 30 MG/ML VIAL IVP ONE (18:10)
[2018-03-20] MEDS ORDERED: MEDR10TA57 PO (18:10)
--- NOTE | 2018-03-20 18:11 | ER Report ---
History and Physical Time Seen By MD: 18:02 Hx. of Stated Complaint: HEAVY VAGINAL BLEEDING AND CRAMPING STARTED YESTERDAY. PERIOD WAS LAST WEEK AND NORMAL. HPI/ROS CHIEF COMPLAINT: Heavy vaginal bleeding HISTORY OF PRESENT ILLNESS: 38-year-old female presents with heavy vaginal bleeding. She states her last admission. Was one week ago and was normal. She now has lower abdominal cramps and severe pain with heavy menstrual bleeding. She notes some red blood. She notes no dizziness or shortness of breath. She is on no hormonal therapy. She denies dysuria. She denies risk of . REVIEW OF SYSTEMS: Respiratory: No cough, no dyspnea. Cardiovascular: No chest pain, no palpitations. Gastrointestinal: As above Musculoskeletal: No back pain. Allergies: Coded Allergies: gabapentin (Verified Allergy, Severe, 03/01/18) lamotrigine (Verified Allergy, Severe, 02/23/18) Reports having seizures. Opioids - Morphine Analogues (Verified Allergy, Intermediate, 02/23/18) albuterol sulfate (Verified Allergy, Unknown, STOPPED BREATHING, 02/23/18) oxycodone HCl (Verified Adverse Reaction, Unknown, VOMITTING, 02/23/18) Home Meds Active Scripts Medroxyprogesterone Acetate (PROVERA) 10 Mg Tablet, 10 MG PO DAILY PRN for abnormal uterine bleeding, #7 Prov:MEERA SALAS DO 03/20/18 Reported Medications [cbd] No Conflict Check, 2 GTT PO QDAY PRN for ANXIETY 02/23/18 Metoprolol Tartrate (METOPROLOL TARTRATE) 25 Mg Tablet, 12.5 TAB PO BID, TAB 02/23/18 Sumatriptan Succinate (IMITREX) 25 Mg Tablet, 25 MG PO QDAY PRN for HEADACHE, #30 05/12/17 Mirtazapine (REMERON) 15 Mg Tablet, 15 MG PO QHS for 1 Day, #30 1 Refill Take one hour prior to intention to sleep 05/10/17 Olanzapine (OLANZAPINE) 5 Mg Tablet, 5 MG PO QHS, #30 1 Refill Take one hour prior to intention to sleep 05/10/17 Hydroxyzine Pamoate (VISTARIL) 25 Mg Capsule, 25 MG PO Q6H PRN for ANXIETY/INSOMNIA, CAPSULE TAKE EVERY SIX HOURS NEEDED FOR ANXIETY OR INSOMNIA 06/13/14 Discontinued Scripts Sulfamethoxazole/Trimet 800-160 Mg Tab (BACTRIM DS TABLET) 1 Each Tablet, 1 TAB PO Q12H for 3 Days, #6 TAB 0 Refills Prov:ISHAN RIOS END FRAZER-BC 02/23/18 Past Medical/Surgical History The patient has a past medical and surgical history of shingles, TIAs since age 13, PTSD, headaches, murmur, asthma, pneumonia, uterine cysts and fibroids, urinary tract infections, arthritis, chronic back pain, wears glasses, hard of hearing in left ear, psoriasis, history of meth use, still uses marijuana, bipolar, rage, PTSD, situational anorexia, depression, severe dental disease. Reviewed Nurses Notes: Yes Old Medical Records Reviewed: Yes Hx Smoking: Yes Smoking Status: Smoker: Status Unknown Exposure to Second Hand Smoke?: No 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 OCC MARIJUANA) Hx Alcohol Use: Yes Constitutional Vital Sign - Last 24 Hours 03/20/18 03/20/18 17:18 18:18 Pulse 66 85 Resp 16 16 B/P (MAP) 118/63 115/72 (86) Pulse Ox 98 95 O2 Delivery Room Air Room Air Physical Exam Vital signs stable, afebrile, pulse ox normal General Appearance: The patient is alert, has no immediate need for airway protection and no current signs of toxicity. Skin warm, dry, pink HEENT: Pupils equal and round no injection. Oropharynx without redness or exudate, mucous members are moist Respiratory: Chest is non tender, lungs are clear to auscultation. Cardiac: regular rate and rhythm Gastrointestinal: Abdomen is soft and non tender, no masses, bowel sounds normal. Musculoskeletal: Neck: Neck is supple and non tender. Extremities have full range of motion and are non tender. Skin: No rashes or lesions. DIFFERENTIAL DIAGNOSIS: After history and physical exam differential diagnosis was considered for vaginal bleeding including but not limited to ectopic , menses, miscarriage, and dysfunctional uterine bleeding. Medical Decision Making Data Points Result Diagram: 03/20/18174703/20/181747 Laboratory Hematology Test 03/20/18 17:14 03/20/18 17:48 Urine Color Straw Urine Clarity Clear Urine pH 8.0 pH (4.8-9.5) Urine Specific [place] 1.008 Urine Protein Negative mg/dL (NEGATIVE) Urine Glucose (UA) Negative mg/dL (NEGATIVE) Urine Ketones Negative mg/dL (NEGATIVE) Urine Blood Large (NEGATIVE) Urine Nitrite Negative (NEGATIVE) Urine Bilirubin Negative (NEGATIVE) Urine Urobilinogen Negative mg/dL (0.2-1.9) Urine Leukocyte Esterase Negative (NEGATIVE) Urine RBC 5 /HPF (0-2/HPF) Urine WBC 1 /HPF (0-5/HPF) Urine Squamous Epithelial Cells Many /LPF (</=FEW) Urine Bacteria Few /HPF (NONE-FEW) Urine Mucus None /HPF (NONE-FEW) Red Blood Count 4.66 M/uL (4.17-5.56) Mean Corpuscular Volume 90.4 fL (80.0-96.0) Mean Corpuscular Hemoglobin 30.7 pg (26.0-33.0) Mean Corpuscular Hemoglobin Concent 34.0 g/dL (32.0-36.0) Red Cell Distribution Width 13.1 % (11.5-14.5) Mean Platelet Volume 7.4 fL (7.2-11.1) Neutrophils (%) (Auto) 53.2 % (39.4-72.5) Lymphocytes (%) (Auto) 38.6 % (17.6-49.6) Monocytes (%) (Auto) 4.9 % (4.1-12.4) Eosinophils (%) (Auto) 2.5 % (0.4-6.7) Basophils (%) (Auto) 0.8 % (0.3-1.4) Nucleated RBC Relative Count (auto) 0.0 /100WBC Neutrophils # (Auto) 5.3 K/uL (2.0-7.4) Lymphocytes # (Auto) 3.9 K/uL (1.3-3.6) Monocytes # (Auto) 0.5 K/uL (0.3-1.0) Eosinophils # (Auto) 0.2 K/uL (0.0-0.5) Basophils # (Auto) 0.1 K/uL (0.0-0.1) Nucleated RBC Absolute Count (auto) 0.00 K/uL Sodium Level 141 mmol/L (137-145) Potassium Level 3.9 mmol/L (3.5-5.0) Chloride Level 109 mmol/L (98-107) Carbon Dioxide Level 27 mmol/L (22-31) Blood Urea Nitrogen 10 mg/dl (7-18) Creatinine 0.70 mg/dl (0.52-1.04) Glomerular Filtration Rate Calc > 60.0 Random Glucose 92 mg/dl (75-110) Calcium Level 9.0 mg/dl (8.4-10.2) Total Bilirubin 0.2 mg/dl (0.2-1.3) Aspartate Amino Transf (AST/SGOT) 24 U/L (0-35) Alanine Aminotransferase (ALT/SGPT) 30 U/L (0-56) Alkaline Phosphatase 68 U/L (0-126) Total Protein 7.4 g/dl (6.3-8.2) Albumin 4.3 g/dl (3.5-5.0) Human Chorionic Gonadotropin, Qual Negative (NEGATIVE) Chemistry Test 03/20/18 17:14 03/20/18 17:48 Urine Color Straw Urine Clarity Clear Urine pH 8.0 pH (4.8-9.5) Urine Specific [place] 1.008 Urine Protein Negative mg/dL (NEGATIVE) Urine Glucose (UA) Negative mg/dL (NEGATIVE) Urine Ketones Negative mg/dL (NEGATIVE) Urine Blood Large (NEGATIVE) Urine Nitrite Negative (NEGATIVE) Urine Bilirubin Negative (NEGATIVE) Urine Urobilinogen Negative mg/dL (0.2-1.9) Urine Leukocyte Esterase Negative (NEGATIVE) Urine RBC 5 /HPF (0-2/HPF) Urine WBC 1 /HPF (0-5/HPF) Urine Squamous Epithelial Cells Many /LPF (</=FEW) Urine Bacteria Few /HPF (NONE-FEW) Urine Mucus None /HPF (NONE-FEW) White Blood Count 10.0 k/uL (4.5-11.0) Red Blood Count 4.66 M/uL (4.17-5.56) Hemoglobin 14.3 g/dL (12.0-16.0) Hematocrit 42.2 % (34.0-47.0) Mean Corpuscular Volume 90.4 fL (80.0-96.0) Mean Corpuscular Hemoglobin 30.7 pg (26.0-33.0) Mean Corpuscular Hemoglobin Concent 34.0 g/dL (32.0-36.0) Red Cell Distribution Width 13.1 % (11.5-14.5) Platelet Count 302 K/uL (150-450) Mean Platelet Volume 7.4 fL (7.2-11.1) Neutrophils (%) (Auto) 53.2 % (39.4-72.5) Lymphocytes (%) (Auto) 38.6 % (17.6-49.6) Monocytes (%) (Auto) 4.9 % (4.1-12.4) Eosinophils (%) (Auto) 2.5 % (0.4-6.7) Basophils (%) (Auto) 0.8 % (0.3-1.4) Nucleated RBC Relative Count (auto) 0.0 /100WBC Neutrophils # (Auto) 5.3 K/uL (2.0-7.4) Lymphocytes # (Auto) 3.9 K/uL (1.3-3.6) Monocytes # (Auto) 0.5 K/uL (0.3-1.0) Eosinophils # (Auto) 0.2 K/uL (0.0-0.5) Basophils # (Auto) 0.1 K/uL (0.0-0.1) Nucleated RBC Absolute Count (auto) 0.00 K/uL Glomerular Filtration Rate Calc > 60.0 Calcium Level 9.0 mg/dl (8.4-10.2) Total Bilirubin 0.2 mg/dl (0.2-1.3) Aspartate Amino Transf (AST/SGOT) 24 U/L (0-35) Alanine Aminotransferase (ALT/SGPT) 30 U/L (0-56) Alkaline Phosphatase 68 U/L (0-126) Total Protein 7.4 g/dl (6.3-8.2) Albumin 4.3 g/dl (3.5-5.0) Human Chorionic Gonadotropin, Qual Negative (NEGATIVE) Urinalysis Test 03/20/18 17:14 Urine Color Straw Urine Clarity Clear Urine pH 8.0 pH (4.8-9.5) Urine Specific [place] 1.008 Urine Protein Negative mg/dL (NEGATIVE) Urine Glucose (UA) Negative mg/dL (NEGATIVE) Urine Ketones Negative mg/dL (NEGATIVE) Urine Blood Large (NEGATIVE) Urine Nitrite Negative (NEGATIVE) Urine Bilirubin Negative (NEGATIVE) Urine Urobilinogen Negative mg/dL (0.2-1.9) Urine Leukocyte Esterase Negative (NEGATIVE) Urine RBC 5 /HPF (0-2/HPF) Urine WBC 1 /HPF (0-5/HPF) Urine Squamous Epithelial Cells Many /LPF (</=FEW) Urine Bacteria Few /HPF (NONE-FEW) Urine Mucus None /HPF (NONE-FEW) ED Course/Re-evaluation Clinical Indication for ER IV: IV Access ED Course Patient was admitted to an examination room. H&P was done. The differential diagnoses was considered. On clinical examination. Patient notes heavy vaginal bleeding with cramps. She notes lower abdominal pain. She said no fever. Her H&H is stable. Her urinalysis is unremarkable. Her coags are normal. Her test is negative. Patient will be treated with a short course of Provera 10 mg per day for 7 days. She is advised to follow-up with Dr. Gong for further treatment. Decision to Disposition Date: Mar 20, 2018 Decision to Disposition Time: 18:28 Depart Departure Latest Vital Signs Vital Signs Date Time Temp Pulse Resp B/P (MAP) Pulse Ox O2 Delivery O2 Flow Rate FiO2 03/20/18 18:18 85 16 115/72 (86) 95 Room Air Impression: Primary Impression: Dysfunctional uterine bleeding Condition: Improved Disposition: HOME OR SELF-CARE Referrals: [facility] (PCP) New Scripts Medroxyprogesterone Acetate (PROVERA) 10 Mg Tablet 10 MG PO DAILY PRN for abnormal uterine bleeding, #7 Prov: MEERA SALAS DO 03/20/18 Patient Instructions: Dysfunctional Uterine Bleeding (ED) Additional Instructions: Take ibuprofen 200 mg 3 tablets 3 times a day with food Apply heating pad to your abdomen It will take one or 2 days of progesterone/Provera hormone to stop the heavy bleeding and then after you discontinue the hormone treatment. You'll likely having heavy menstrual flow to reset your uterus to its normal state. Follow-up with Dr. Gong your HEAT TREAT SUPERVISOR doctor within the next week MEERA SALAS DO Mar 20, 2018 18:11
[2018-03-20 18:18] VITALS: BP 115/72
== END 2018-03-20 18:50 | disposition home or self-care (01) ==
LOC: ER 18:10
DX: N93.8 Other specified abnormal uterine and vaginal bleeding (principal)
CPT/HCPCS: 81001; 84703; 85025; 96374; 99283; J1885; 82040; 82247; 82310; 82374; 82435; 82565; 82947; 84075; 84132; 84155; 84295; 84450; 84460; 84520

== ENCOUNTER 2018-03-26 09:02 | Emergency (ER) | payer MEDICARE, MEDICAID ==
[2016-03-09 17:33] VITALS: Wt 60.8 kg
[~2018-03-26 09:02] MED LIST changes: +MEDR10TA57 PO
[2018-03-26 09:14] VITALS: BP 122/82
[2018-03-26] MEDS ORDERED: MIRT-1 PO (09:21)
[2018-03-26] MEDS ORDERED: ONDANSETRON 4 MG ODT TABDP SL ONE (09:35)
[2018-03-26] MEDS ORDERED: SUMAtriptan SUCC 6MG/0.5ML VL SUBQ ONE (09:35)
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
[2018-03-26 09:46] LABS: PLATELET COUNT, AUTOMATED 244 K/uL (150-450)
== END 2018-03-26 11:20 | disposition home or self-care (01) ==
LOC: ER 09:24
DX: R51 Headache (principal); F43.20 Adjustment disorder, unspecified
CPT/HCPCS: 36415; 80305; 81001; 83690; 84443; 84703; 85025; 96372; 99283; A9270; G0480; Q0162; 80329; 82040; 82247; 82310; 82374; 82435; 82565; 82947; 84075; 84132; 84155; 84295; 84450; 84460; 84520; J3030; S0119

== ENCOUNTER 2018-04-20 11:54 | Emergency (ER) | payer MEDICARE, MEDICAID ==
[2016-03-09 17:33] VITALS: Wt 61.2 kg
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
[2018-04-20 12:47] LABS: PLATELET COUNT, AUTOMATED 260 K/uL (150-450)
--- NOTE | 2018-04-20 13:52 | RADIOLOGY IMAGING REPORT ---
[place] [facility] [place] NAME: Ignacio Andrade : 1980 MR: [id number] V: [id number] EXAM DATE: [id number] ORDERING PHYSICIAN: GRETA LING TECHNOLOGIST: [place] [facility] [place]: Ignacio Andrade : 1980 Visit/Account:[id number] Date of Sevice: 04/20/2018 CT Head without contrast Indication: Seizure Comparison: CT head June 24, 2016 Technique: Axial CT images were obtained through the brain from the skull base to the vertex without administration of IV contrast. Reformatted coronal and sagittal images were also obtained. One of the following dose optimization techniques was utilized in the performance of this exam: Autom ated exposure control; adjustment of the mA and/or kV according to the patient's size; or use of an i terative reconstruction technique. Specific details can be referenced in the facility's radiology C T exam operational policy. Findings: There is no acute hemorrhage, midline shift or mass effect. No extra-axial fluid collecti ons. The barksdale-white matter differentiation is maintained. The ventricles and basal cisterns are nor mal in contour and appearance. The visualized paranasal sinuses and mastoid air cells are clear. IMPRESSION: 1. No acute intracranial process. Report Dictated By: Sang Coleman DO at 04/20/2018 1:44 PM Report E-Signed By: Sang Coleman DO at 04/20/2018 1:48 PM WSN:[id number]
[2018-04-20 14:30] VITALS: BP 112/75
[2018-04-20] MEDS ORDERED: IBUPROFEN 600 MG TAB PO ONE (14:50)
== END 2018-04-20 16:42 ==
LOC: EDUNIT# 11:54 → ER 12:03
DX: R45.851 Suicidal ideations (principal); G40.89 Other seizures
CPT/HCPCS: 36415; 70450; 80305; 81001; 81025; 83735; 84146; 84443; 85025; 99284; A9270; G0480; 80320; 80329; 82040; 82247; 82310; 82374; 82435; 82565; 82947; 84075; 84132; 84155; 84295; 84450; 84460; 84520

== ENCOUNTER 2018-04-20 16:30 | Inpatient (IN) | payer MEDICARE, MEDICAID ==
[2016-03-09 17:33] VITALS: Ht 165.1 cm; Wt 61.2 kg
[~2018-04-20] VITALS: Ht 165.1 cm; Wt 61.2 kg
[2018-04-20] MEDS ORDERED: MAG HYD/AL HYD/SIMETH 30ML UDC PO PRN (16:50)
[2018-04-20] MEDS ORDERED: ACETAMINOPHEN 325 MG TAB PO PRN (16:50)
[2018-04-20] MEDS ORDERED: MIRTAZAPINE 15 MG TAB PO PRN (16:50)
[2018-04-20 18:01] VITALS: BP 108/78
[2018-04-20] MEDS ORDERED: SUMAtriptan SUCC 25MG TAB PO PRN (19:25)
[2018-04-20] MEDS: OLANZapine 5 MG TAB PO SCH (21:43)
[2018-04-20] MEDS: hydrOXYzine PAMOATE 25 MG CAP PO PRN (22:25)
[2018-04-21 06:19] VITALS: BP 90/57
--- NOTE | 2018-04-21 08:12 | EKG ---
FACILITY: [facility] [place] PATIENT NAME: MIGEL ORTIZ : [id number] MR: [id number] V: [id number] EXAM DATE: ORDERING PHYSICIAN: KAREY RODRÍGUEZ TECHNOLOGIST: [place] Test Reason : HISTORY OF ARRYTHIMIAS Blood Pressure : / mmHG Vent. Rate : 059 BPM Atrial Rate : 059 BPM P-R Int : 132 ms QRS Dur : 076 ms QT Int : 430 ms P-R-T Axes : 046 054 028 degrees QTc Int : 425 ms Sinus bradycardia with sinus arrhythmia Otherwise normal ECG When compared with ECG of 25-NOV-2017 09:01, No significant change was found Confirmed by Jose Chun ([id number]) on 04/21/2018 7:24:59 PM Referred By: KAREY RODRÍGUEZ Confirmed By:Jose Carbajal
[2018-04-21] MEDS: MULTIVITAMINS TAB PO SCH (08:44)
[2018-04-21] MEDS: hydrOXYzine PAMOATE 25 MG CAP PO PRN ×2 (08:44→20:55)
[2018-04-21] MEDS: METOPROLOL SUCC XL 25 MG TABCR PO SCH ×2 (13:09→20:56)
[2018-04-21 14:30] VITALS: BP 100/62
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
[2018-04-21] MEDS: OLANZapine 5 MG TAB PO SCH (20:56)
[2018-04-21] MEDS: MIRTAZAPINE 15 MG TAB PO SCH (20:56)
[2018-04-22 08:10] VITALS: BP 116/62
[2018-04-22] MEDS: hydrOXYzine PAMOATE 25 MG CAP PO PRN ×2 (08:13→20:46)
[2018-04-22] MEDS: METOPROLOL SUCC XL 25 MG TABCR PO SCH ×2 (08:13→20:47)
[2018-04-22] MEDS: MULTIVITAMINS TAB PO SCH (08:13)
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
[2018-04-22 18:40] VITALS: BP 108/62
[2018-04-22] MEDS: MIRTAZAPINE 15 MG TAB PO SCH (20:46)
[2018-04-22] MEDS: OLANZapine 5 MG TAB PO SCH (20:46)
[2018-04-23 06:14] VITALS: BP 94/57
[2018-04-23] MEDS: MULTIVITAMINS TAB PO SCH (08:22)
[2018-04-23] MEDS: METOPROLOL SUCC XL 25 MG TABCR PO SCH ×2 (08:23→21:19)
[2018-04-23] MEDS: hydrOXYzine PAMOATE 25 MG CAP PO PRN ×3 (08:23→21:16)
[2018-04-23 10:00] VITALS: BP 106/70
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
[2018-04-23 19:18] VITALS: BP 122/70
[2018-04-23] MEDS: OLANZapine 5 MG TAB PO SCH (21:16)
[2018-04-23] MEDS: MIRTAZAPINE 15 MG TAB PO SCH (21:17)
[2018-04-24 06:21] VITALS: BP 72/39
[2018-04-24] MEDS: hydrOXYzine PAMOATE 25 MG CAP PO PRN (08:04)
[2018-04-24] MEDS: MULTIVITAMINS TAB PO SCH (08:04)
[2018-04-24] MEDS: METOPROLOL SUCC XL 25 MG TABCR PO SCH (08:04)
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
== END 2018-04-24 10:58 | disposition home or self-care (01) | DRG 885 ==
LOC: BHS 16:30
PROVIDERS: ADMIT Psychiatry & Neurology Psychiatry; ATTEND Psychiatry & Neurology Psychiatry
DX: F31.81 Bipolar II disorder (principal); R45.851 Suicidal ideations; F43.12 Post-traumatic stress disorder, chronic; F12.20 Cannabis dependence, uncomplicated; F10.21 Alcohol dependence, in remission; F15.21 Other stimulant dependence, in remission; F16.21 Hallucinogen dependence, in remission; Z63.0 Problems in relationship with spouse or partner; Z91.42 Personal history of forced labor or sexual exploitation
CPT/HCPCS: 36415; 70450; 80305; 80320; 80329; 81001; 81025; 82040; 82247; 82310; 82374; 82435; 82565; 82947; 83735; 84075; 84132; 84146; 84155; 84295; 84443; 84450; 84460; 84520; 85025; 93005; 99284; Q0177

== ENCOUNTER → 2018-04-20 | Outpatient (CLI) | payer MEDICARE, MEDICAID ==
[2016-03-09 17:33] VITALS: BMI 20.7
== END ==
LOC: AMB 11:28
PROVIDERS: ATTEND Nurse Practitioner
DX: F41.9 Anxiety disorder, unspecified (principal); R45.851 Suicidal ideations
CPT/HCPCS: A0425; A0427

== ENCOUNTER 2018-07-29 13:22 | Emergency (ER) | payer MEDICAID, MEDICARE ==
[2016-03-09 17:33] VITALS: Wt 61.2 kg
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
[2018-07-29 13:30] VITALS: BP 127/64
[2018-07-29] MEDS ORDERED: oxygen at night (13:39)
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
[2018-07-29] MEDS ORDERED: KET10 PO (15:15)
== END 2018-07-29 15:28 | disposition home or self-care (01) ==
LOC: ER 13:35
DX: S62.627A Displaced fracture of middle phalanx of left little finger, initial encounter for closed fracture (principal)
CPT/HCPCS: 99283

== ENCOUNTER 2018-09-14 15:05 | Emergency (ER) | payer MEDICARE ==
[2016-03-09 17:33] VITALS: BMI 20.7
[~2018-09-14 15:05] MED LIST changes: +oxygen at night
[2018-09-14] MEDS ORDERED: diphenhydrAMINE 50 MG/ML VIAL IVP ONE (15:50)
[2018-09-14] MEDS ORDERED: NS(*) 0.9% 1000 ML BAG 1,000 ML IV ONE (15:50)
[2018-09-14] MEDS ORDERED: METOCLOPRAMIDE 10 MG/2 ML SDV IVP ONE (15:50)
--- NOTE | 2018-09-14 16:04 | ER Report ---
History and Physical Time Seen By MD: 15:36 Hx. of Stated Complaint: migraine x 3days HPI/ROS CHIEF COMPLAINT: Migraine HISTORY OF PRESENT ILLNESS: PT has a long hx of migraines. Pt started with this current migraine 3 days ago while driving back from [place]. Pt took her Imitrex without any relief. Pt Stopped in [place] to go to an ER for the migraine and was given morphine. Pt states it got slightly better but then restarted. Pt has had nausea, vomiting and photophobia. Headache is between her eyes and radiates to her occiput which is her usual location. Pt took an imitrex this am without relief so came to ed. no fevers. no neck pain. REVIEW OF SYSTEMS: Constitutional: No fever, no chills. Eyes: No discharge. + photophobia ENT: No sore throat. Cardiovascular: No chest pain, no palpitations. Respiratory: No cough, no shortness of breath. Gastrointestinal: No abdominal pain, + vomiting, + nausea Genitourinary: No hematuria. Musculoskeletal: No back pain. Skin: No rashes. Neurological: + headache. Allergies: Coded Allergies: gabapentin (Verified Allergy, Severe, 04/23/18) [facility]ES [facility] lamotrigine (Verified Allergy, Severe, 04/20/18) Reports having seizures. Opioids - Morphine Analogues (Verified Allergy, Intermediate, 04/23/18) REPORTS VOMITTING albuterol sulfate (Verified Allergy, Unknown, STOPPED BREATHING, 04/20/18) oxycodone HCl (Verified Adverse Reaction, Unknown, VOMITTING, 04/20/18) Home Meds Active Scripts Ketorolac Tromethamine (KETOROLAC TROMETHAMINE) 10 Mg Tab, 10 MG PO Q6H PRN for PAIN, #12 TAB 0 Refills Prov:JEFF CHOI MD 07/29/18 Reported Medications [oxygen at night] No Conflict Check 07/29/18 Mirtazapine (REMERON) 15 Mg Tablet, 7.5 MG PO QHS for 30 Days, #30 03/26/18 Metoprolol Tartrate (METOPROLOL TARTRATE) 25 Mg Tablet, 12.5 TAB PO BID, TAB 02/23/18 Sumatriptan Succinate (IMITREX) 25 Mg Tablet, 25 MG PO QDAY PRN for HEADACHE, #30 05/12/17 Olanzapine (OLANZAPINE) 5 Mg Tablet, 5 MG PO QHS, #30 1 Refill Take one hour prior to intention to sleep 05/10/17 Hydroxyzine Pamoate (VISTARIL) 25 Mg Capsule, 25-50 MG PO Q6H PRN for ANXIETY/INSOMNIA, CAPSULE TAKE 25 or 50mg EVERY SIX HOURS NEEDED FOR ANXIETY OR INSOMNIA 06/13/14 Past Medical/Surgical History Pmhx: pseudoseizures, bipolar, uti, ovarian cyts, SI, cannibis use, migraines, asthma, PTSD, Drug and alcohol abuse Hx Smoking: No Smoking Status: Never Smoker Exposure to Second Hand Smoke?: No 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 OCC MARIJUANA) Hx Alcohol Use: No (sober) Constitutional Vital Sign - Last 24 Hours 09/14/18 15:44 Temp 97.8 Pulse 70 Resp 16 B/P (MAP) 91/55 Pulse Ox 96 Physical Exam General Appearance: The patient is alert, has no immediate need for airway protection and no signs of toxicity. Eyes: Pupils equal and round no pallor or injection, EOMI, nl fundoscopic exams ENT: no pharyngeal erythema or exudates, Mucous membranes are moist, TM are nl b/l Respiratory: There are no retractions, lungs are clear to auscultation. Cardiovascular: Regular rate and rhythm. pulses are equal and symmetrical Gastrointestinal: Abdomen is soft and non tender, no masses, bowel sounds normal, no guarding, no rigidity or rebound Neurological: Cranial nerves II-XII grossly intact, no sensory or motor loss Skin: Warm and dry, no rashes. Musculoskeletal: Neck is supple non tender, no vertebral tenderness Extremities are nontender, nonswollen and have full range of motion. DIFFERENTIAL DIAGNOSIS: After history and physical exam differential diagnosis was considered for Migraine Medical Decision Making ED Course/Re-evaluation Clinical Indication for ER IV: Hydration, IV Access ED Course IV fluids, meds 09/14/2018 5:26:50 pm PT feeling much better and is up reading. Pt states she feels she can go home. Decision to Disposition Date: Sep 14, 2018 Decision to Disposition Time: 17:27 Depart Departure Latest Vital Signs Vital Signs Date Time Temp Pulse Resp B/P (MAP) Pulse Ox O2 Delivery O2 Flow Rate FiO2 09/14/18 15:44 97.8 70 16 91/55 96 Impression: Primary Impression: Migraine Condition: Improved Disposition: HOME OR SELF-CARE Patient Instructions: Migraine Headache (ED) Additional Instructions: Follow up with your doctor as needed. Continue your current medications Problem Qualifiers Primary Impression: Migraine Migraine type: unspecified Status migrainosus presence: without status migrainosus Intractability: not intractable Qualified Codes: G43.909 - Migraine, unspecified, not intractable, without status migrainosus HOLLY KOEHLER DO Sep 14, 2018 16:04
[2018-09-14 17:30] VITALS: BP 104/64
== END 2018-09-14 17:42 | disposition home or self-care (01) ==
LOC: ER 15:49
DX: G43.909 Migraine, unspecified, not intractable, without status migrainosus (principal)
CPT/HCPCS: 96361; 96374; 96375; 99283; J1200; J2765; J7030